=== PATIENT | male | born 1960 | race Caucasian/White ===

== ENCOUNTER 2017-12-26 18:26 | Emergency (ER) | payer SELFPAY ==
[2017-12-26] MEDS ORDERED: Ketorolac 15 MG/ML SDV IVPUSH ONE (18:55)
--- NOTE | 2017-12-26 18:57 | EDM.PDOC ---
ED HPI GENERAL MEDICAL PROBLEM - General Chief Complaint: ENT Problem Stated Complaint: DENTAL COMPLAINT Time Seen by Provider: 12/26/17 18:36 Source of Information: Reports: Patient History Limitations: Reports: No Limitations - History of Present Illness INITIAL COMMENTS - FREE TEXT/NARRATIVE: 57-year-old male presents for evaluation and treatment of pain and swelling to the left side. States that he woke up with his face like this. He reports pain to the left upper teeth. Resort towards associated symptoms of chills but no fevers, nausea or vomiting. He reports some pain with extraocular movement particularly when looking left lateral. States he is not taking Tylenol or Motrin. He did take as an antibiotic that his neighbor had unsure what this was , about half hour prior to arrival in the ER. States he has not seen a dentist in quite some time. Has a history of COPD but does not see a primary care provider. Onset: Today Location: Reports: Face Left Upper Tooth/Teeth Pain Score (Numeric/FACES): 7 - Related Data Allergies Allergy/AdvReac Type Severity Reaction Status Date / Time No Known Allergies Allergy Verified 12/26/17 18:39 Home Meds: Home Meds Clindamycin HCl 450 mg PO Q6HR #53 capsule 12/26/17 [Rx] Past Medical History Respiratory History: Reports: COPD Musculoskeletal History: Reports: Back Pain, Chronic, Neck Pain, Chronic Social & Family History - Tobacco Use Smoking Status *Q: Current Every Day Smoker Years of Tobacco use: 40 Packs/Tins Daily: 1 - Caffeine Use Caffeine Use: Reports: Coffee - Recreational Drug Use Recreational Drug Use: No ED ROS ENT - Review of Systems Review Of Systems: See Below Constitutional: Reports: Chills. Denies: Fever HEENT: Reports: Dental Pain, Sinus Problem, Other (left sided facial pain and swelling; pain with EOM) Respiratory: Denies: Shortness of Breath Cardiovascular: Denies: Chest Pain GI/Abdominal: Denies: Nausea, Vomiting ED EXAM, ENT - Physical Exam Exam: See Below Exam Limited By: No Limitations General Appearance: Alert, WD/WN, No Apparent Distress, Anxious Eye Exam: Left Eye: Periorbital Changes (swelling to both upper and lower lids) , Bilateral Eye: EOMI (reports pain to the left eye with left lateral gaze) Ears: Normal External Exam, Normal Canal, Normal TMs Nose: Normal Inspection Mouth/Throat: Dental Abcess (#13/14), Dental Tenderness, Gum Swelling ( ), Other (adela poor dentition with muliple carries and multiple missing teeth; severe gum regression and ascess at #13 with regression to the maxilla; #14 absent) Head: Facial Swelling (left maxilla to the zygomatic proces, left orbit and left nasal bone), Sinus Tenderness (left maxillary) Respiratory/Chest: No Respiratory Distress, Lungs Clear, Normal Breath Sounds Cardiovascular: Normal Peripheral Pulses, No Murmur, Tachycardia Neurological: Alert, Oriented, Normal Cognition Psychiatric: Normal Affect, Normal Mood Skin: Warm, Dry, Normal Color Course - Vital Signs Last Recorded V/S: Last Vital Signs Temp 99.2 F 12/26/17 18:36 Pulse 101 H 12/26/17 18:36 Resp 24 H 12/26/17 18:36 BP 129/91 H 12/26/17 18:36 Pulse Ox 97 12/26/17 18:36 - Orders/Labs/Meds Labs: Laboratory Tests 12/26/17 12/26/17 12/26/17 Range/Units 19:05 19:05 19:15 WBC 13.87 H (4.23-9.07) K/mm3 RBC 4.89 (4.63-6.08) M/mm3 Hgb 15.5 (13.7-17.5) gm/L Hct 46.0 (40.1-51.0) % MCV 94.1 H (79.0-92.2) fl MCH 31.7 (25.7-32.2) pg MCHC 33.7 (32.2-35.5) g/dl RDW Std Deviation 43.2 (35.1-43.9) fL Plt Count 194 (163-337) K/mm3 MPV 9.0 L (9.4-12.3) fl Neutrophils % (Manual) 78 H (40-60) % Band Neutrophils % 0 (0-10) % Lymphocytes % (Manual) 18 L (20-40) % Atypical Lymphs % 0 % Monocytes % (Manual) 4 (2-10) % Eosinophils % (Manual) 0 L (0.8-7.0) % Basophils % (Manual) 0 L (0.2-1.2) Platelet Estimate Adequate Plt Morphology Comment Normal Anisocytosis 1+ sligh RBC Morph Comment Not Reportable Sodium 137 (136-145) mEq/L Potassium 3.9 (3.5-5.1) mEq/L Chloride 103 (98-107) mEq/L Carbon Dioxide 25 (21-32) mEq/L Anion Gap 12.9 (5-15) BUN 13 (7-18) mg/dL Creatinine 0.8 (0.7-1.3) mg/dL Est Cr Clr Drug Dosing 100.40 mL/min Estimated GFR (MDRD) > 60 (>60) mL/min BUN/Creatinine Ratio 16.3 (14-18) Glucose 113 H (74-106) mg/dL Lactic Acid 0.7 (0.4-2.0) mmol/L Calcium 8.8 (8.5-10.1) mg/dL Total Bilirubin 0.5 (0.2-1.0) mg/dL AST 16 (15-37) U/L ALT 19 (16-63) U/L Alkaline Phosphatase 62 (46-116) U/L C-Reactive Protein 4.5 H* (<1.0) mg/dL Total Protein 7.1 (6.4-8.2) g/dl Albumin 3.3 L (3.4-5.0) g/dl Globulin 3.8 gm/dL Albumin/Globulin Ratio 0.9 L (1-2) Meds: Medications Discontinued Medications Generic Name Dose Route Start Last Admin Trade Name Freq PRN Reason Stop Dose Admin Clindamycin HCl 450 mg 12/26/17 21:54 12/26/17 22:26 Cleocin PO 12/26/17 21:55 450 mg NOW STA Administration Clindamycin HCl 450 mg 12/26/17 21:55 12/26/17 22:26 Cleocin PO 12/26/17 21:56 450 mg ONETIME ONE Administration Clindamycin Phosphate 900 mg/ 106 mls @ 100 mls/hr 12/26/17 20:24 12/26/17 20 :31 Sodium Chloride IV 12/26/17 21:27 100 mls/hr ONETIME ONE Administration Iopamidol 80 ml 12/26/17 19:22 12/26/17 19:51 Isovue-300 (61%) IVPUSH 12/26/17 19:23 80 ml ONETIME ONE Administration Ketorolac Tromethamine 15 mg 12/26/17 18:55 12/26/17 19:11 Toradol IVPUSH 12/26/17 18:56 15 mg ONETIME ONE Administration Sodium Chloride 10 ml 12/26/17 18:54 12/26/17 20:32 Saline Flush FLUSH 10 ml ASDIRECTED PRN Administration Keep Vein Open Sodium Chloride 10 ml 12/26/17 19:22 12/26/17 19:52 Saline Flush FLUSH 12/26/17 19:23 10 ml ONETIME ONE Administration - Radiology Interpretation Free Text/Narrative:: CT of the maxillofacial with IV contrast impression per vrad: left maxillary sinusitis. Inflammatory occlusion of the left osteomeatal complex. Fluid collection with gas bubbles demonstrated at the inferior margin of the premaxillary soft tissues adjacent to the maxillary sinus possibly representing an abscess of dental origin. Inflammation spread to the left periorbital and parnasal region. Bilateral ethmoid sinusitis and left frontal sinusitis. Inflammation in he right frontal ethmoid recess. CT Results Date: 12/26/17 - Re-Assessments/Exams Free Text/Narrative Re-Assessment/Exam: 12/26/17 21:22 I reviewed the labs and imaging with the patient. Given the severity of his dental abscess and sinusitis I do recommend that he stay in the hospital. I informed him that he is at high risk for developing a brain abscess. He does not want to stay. I asked him several times if he be willing to stay and reiterated that this was my recommendation but he would like to go home. Plan will be to discharge him home with some clindamycin. I do not feel he is reliable to come into the hospital or ER for IV antibiotics. Patient's neighbor brought him to the ER and he is very concerned about transportation. Discharge instructions as documented. Departure - Departure Time of Disposition: 22:07 Disposition: Home, Self-Care 01 Condition: Serious Clinical Impression: Sinusitis, Dental abscess - Discharge Information Prescriptions: Clindamycin HCl 450 mg PO Q6HR #53 capsule Instructions: Dental Abscess, [id number], Sinusitis, Adult, [id number] Referrals: PCP,None [Primary Care Provider] - Tiffanie Trujillo MD [Physician] - Forms: ED Department Discharge Additional Instructions: Follow-up with family medicine this week. Recommend Dr. Trujillo at the [facility], [place]. Call [phone] to schedule with her. See a dentist as soon as you were able to. A list has been provided. Take [id number] Tylenol or Motrin as needed for pain relief. Recommend using ice to the face for additional swelling relief. Clindamycin 450 mg every 6 hours for 2 weeks. Clindamycin is hard on the stomach. Ask the pharmacist for a probiotic to take as well with the clindamycin. [facility] pharmacy is open from noon to 4 tomorrow, fill your prescription. You may take the 2 tabs you were given in the ER 6 hours apart until your prescription filled. please return to the ER immediately if your symptoms change or worsen.
[2017-12-26] MEDS: Sodium Chloride 0.9% 10 ML Syringe FLUSH PRN ×2 (19:13→20:32)
[2017-12-26] MEDS ORDERED: Iopamidol 612 MG/ML 100 ML Bottle IVPUSH ONE (19:22)
[2017-12-26] MEDS ORDERED: Sodium Chloride 0.9% 10 ML Syringe FLUSH ONE (19:22)
[2017-12-26] MEDS ORDERED: Clindamycin Phosphate 900 MG in Sodium Chloride 0.9% 100 ML IV ONE (20:24)
[2017-12-26] MEDS ORDERED: Clindamycin HCl 150 MG Cap PO STA (21:54)
[2017-12-26] MEDS ORDERED: Clindamycin HCl 150 MG Cap PO ONE (21:55)
--- NOTE | 2017-12-28 07:00 | CT ---
CT maxillofacial Technique: Multiple axial sections were obtained from below the mandible superiorly through the paranasal sinuses. Intravenous contrast was utilized. Comparison: No previous study. Findings: Moderate to severe mucosal thickening is seen within the left maxillary sinus. Mild mucosal thickening and possible small retention cyst is noted within the right maxillary sinus. Fairly prominent mucosal thickening is seen of the left ethmoid sinus with lesser mucosal thickening seen within the right maxillary sinus. Mucosal thickening is seen within both frontal sinuses which is worse on the left side. Occlusion due to mucosal thickening is seen of the left maxillary ostia as well as increased soft tissue density within the left nasal cavity. Mild mucosal thickening also seen within the sphenoid sinuses. No air-fluid levels are seen within the paranasal sinuses. Diffuse soft tissue swelling is seen through the upper left neck extending into the left cheek and extending into the left periorbital region. Soft tissue air seen on the left side adjacent to the anterior left maxillary sinus. Lucency is identified around the most posterior molar on the left side within the maxillary region suspicious for dental abscess. Paravertebral soft tissues show no swelling. Parapharyngeal soft tissues appear within normal limits. Scattered lymph nodes are seen within the neck which are felt to be within normal limits. Bone window settings were reviewed which show mild degenerative change within the cervical spine at C3-C4 and C4-C5. Impression: 1. Diffuse mucosal thickening throughout all the paranasal sinuses which has the appearance of chronic sinusitis. 2. Diffuse soft tissue swelling within the upper left neck, left cheek and left periorbital region. Small amount of soft tissue air (possibly representing small soft tissue abscess) anterior to the left maxillary sinus is seen. Lucency identified around the most posterior left-sided maxillary molar suspicious for abscess. This dental abscess may be the etiology for the left sided soft tissue swelling. 3. Incidental degenerative change within the cervical spine. Diagnostic code #3 I agree with preliminary report from [facility], finalized at 12/26/17, 9:50 PM Central Time
== END 2017-12-26 22:15 | disposition home or self-care (01) ==
LOC: JD.ED 18:26
DX: K04.7 Periapical abscess without sinus (principal); J32.9 Chronic sinusitis, unspecified; F17.210 Nicotine dependence, cigarettes, uncomplicated
CPT/HCPCS: 36415; 70487; 80053; 83605; 85007; 85027; 86140; 87040; 96365; 96375; 99284; A9270; J1885; J7030; J7050; Q9967

== ENCOUNTER 2021-04-07 15:05 | Emergency (ER) | payer MEDICAID ==
[2021-04-07] MEDS ORDERED: Sodium Chloride 0.9% 10 ML Syringe FLUSH PRN (16:01)
--- NOTE | 2021-04-07 16:21 | EDM.PDOC ---
ED HPI GENERAL MEDICAL PROBLEM - General Chief Complaint: Respiratory Problem Stated Complaint: SOB CONGESTION Time Seen by Provider: 04/07/21 15:55 Source of Information: Reports: Patient, RN Notes Reviewed History Limitations: Reports: No Limitations - History of Present Illness INITIAL COMMENTS - FREE TEXT/NARRATIVE: Patient is a 60-year-old male who presents to the ER for the evaluation of his cough and shortness of breath. States that he has not been vaccinated for COVID-19. He was around a child that was sick, this last Thursday, April 01, 2021. He states that after he was with this child he began to have some eye redness, and noted that his eye was crusting shut throughout the night and into the morning. He has since developed a cough, with some green-colored sputum. Feels increasingly short of breath. He states this is happened before, when he used to smoke meth, he was gets a little bit of a "infection". States that he last smoked meth about 1 week ago. States he is going to try to kick the habit. He feels warm to the touch, but states he has not had any fevers at home, he is denying any sort of nausea/vomiting/diarrhea. Patient states he has a history of COPD. - Related Data Allergies Allergy/AdvReac Type Severity Reaction Status Date / Time No Known Allergies Allergy Verified 04/07/21 15:58 Home Meds: Home Meds Azithromycin 250 mg PO ASDIRECTED #4 tablet 04/07/21 [Rx] Budesonide/Formoterol Fumarate [Symbicort 160-4.5 Mcg Inhaler] 1 dose IN BID 04/07/21 [History] Oseltamivir [Tamiflu] 75 mg PO BID #9 cap 04/07/21 [Rx] predniSONE 20 mg PO ASDIRECTED #15 tab 04/07/21 [Rx] Past Medical History Respiratory History: Reports: COPD Other Gastrointestinal History: ulcers Musculoskeletal History: Reports: Back Pain, Chronic, Neck Pain, Chronic Social & Family History - Tobacco Use Tobacco Use Status *Q: Current Every Day Tobacco User Years of Tobacco use: 44 Packs/Tins Daily: 1 - Caffeine Use Caffeine Use: Reports: Coffee - Recreational Drug Use Recreational Drug Use: Yes Recreational Drug Type: Reports: Marijuana/Hashish, Methamphetamine Recreational Drug Use Frequency: Weekly ED ROS GENERAL - Review of Systems Review Of Systems: Comprehensive ROS is negative, except as noted in HPI. ED EXAM, GENERAL - Physical Exam Exam: See Below Exam Limited By: No Limitations General Appearance: Alert, WD/WN, No Apparent Distress, Anxious (slight generalized) Eye Exam: Bilateral Eye: Conjunctival Injection, EOMI, PERRL Respiratory/Chest: No Respiratory Distress, Lungs Clear, Normal Breath Sounds, No Accessory Muscle Use, Chest Non-Tender Cardiovascular: Normal Peripheral Pulses, Regular Rate, Rhythm, No Edema Peripheral Pulses: 2+: Radial (L), Radial (R) Extremities: Normal Inspection, Normal Capillary Refill Neurological: Alert, Oriented, Normal Cognition, No Motor/Sensory Deficits Psychiatric: Normal Affect, Normal Mood Skin Exam: Warm, Dry, Intact, Normal Color, No Rash #1 Interpretation EKG Date: 04/07/21 Time: 17:05 Rhythm: NSR (Sinus tach) Rate (Beats/Min): 101 [place]: Normal P-Wave: Present QRS: Normal ST-T: Normal QT: Normal EKG Interpretation Comments: No obvious ischemia or acute ST changes noted, reviewed by myself and Dr. Weiss. Course - Vital Signs Last Recorded V/S: Last Vital Signs Temp 97.0 F 04/07/21 15:56 Pulse 85 04/07/21 15:56 Resp 20 04/07/21 15:56 BP 134/109 H 04/07/21 15:56 Pulse Ox 97 04/07/21 15:56 - Orders/Labs/Meds Orders: Active Orders 24 hr Category Date Time Status Peripheral IV Care [RC] . DIRECTED Care 04/07/21 16:02 Active RT Post Treatment Assessment [RC] Click to Edit Care 04/07/21 17:16 Active RT Pre-Treatment Assessment [RC] Click to Edit Care 04/07/21 17:16 Active Chest 1V Frontal [CR] Stat Exams 04/07/21 16:01 Taken Sodium Chloride 0.9% [Saline Flush] Med 04/07/21 16:01 Active 10 ml FLUSH ASDIRECTED PRN Peripheral IV Insertion Adult [OM.PC] Routine Oth 04/07/21 16:01 Ordered Medication Orders Sodium Chloride (Sodium Chloride 0.9% 10 Ml Syringe) 10 ml FLUSH ASDIRECTED PRN PRN Reason: Keep Vein Open Labs: Laboratory Tests 04/07/21 04/07/21 04/07/21 Range/Units 16:05 16:05 16:45 WBC (4.23-9.07) K/mm3 RBC (4.63-6.08) M/mm3 Hgb (13.7-17.5) gm/dl Hct (40.1-51.0) % MCV (79.0-92.2) fl MCH (25.7-32.2) pg MCHC (32.2-35.5) g/dl RDW Std Deviation (35.1-43.9) fL Plt Count (163-337) K/mm3 MPV (9.4-12.3) fl Neut % (Auto) (34.0-67.9) % Lymph % (Auto) (21.8-53.1) % [place] % (Auto) (5.3-12.2) % Eos % (Auto) (0.8-7.0) Baso % (Auto) (0.1-1.2) % Neut # (Auto) (1.78-5.38) K/mm3 Lymph # (Auto) (1.32-3.57) K/mm3 [place] # (Auto) (0.30-0.82) K/mm3 Eos # (Auto) (0.04-0.54) K/mm3 Baso # (Auto) (0.01-0.08) K/mm3 Manual Slide Review PT (9.7-12.0) SECONDS INR APTT (21.7-31.4) SECONDS D-Dimer, Quantitative (0.19-0.50) mg/L Sodium (136-145) mEq/L Potassium (3.5-5.1) mEq/L Chloride (98-107) mEq/L Carbon Dioxide (21-32) mEq/L Anion Gap (5-15) BUN (7-18) mg/dL Creatinine (0.7-1.3) mg/dL Est Cr Clr Drug Dosing mL/min Estimated GFR (MDRD) (>60) mL/min BUN/Creatinine Ratio (14-18) Glucose (70-99) mg/dL Calcium (8.5-10.1) mg/dL Magnesium (1.8-2.4) mg/dL Total Bilirubin (0.2-1.0) mg/dL AST (15-37) U/L ALT (16-63) U/L Alkaline Phosphatase (46-116) U/L Troponin I (0.00-0.056) ng/mL C-Reactive Protein 1.9 H* (<1.0) mg/dL NT-Pro-B Natriuret Pep (0-125) pg/mL Total Protein (6.4-8.2) g/dl Albumin (3.4-5.0) g/dl Globulin gm/dL Albumin/Globulin Ratio (1-2) Influenza Type A RNA Positive H (NEGATIVE) Influenza Type B RNA Negative (NEGATIVE) SARS-CoV-2 RNA ([place]) Negative Cancelled (NEGATIVE) 04/07/21 04/07/21 04/07/21 Range/Units 16:45 16:45 16:45 WBC 9.92 H (4.23-9.07) K/mm3 RBC 4.78 (4.63-6.08) M/mm3 Hgb 14.8 (13.7-17.5) gm/dl Hct 45.2 (40.1-51.0) % MCV 94.6 H (79.0-92.2) fl MCH 31.0 (25.7-32.2) pg MCHC 32.7 (32.2-35.5) g/dl RDW Std Deviation 43.9 (35.1-43.9) fL Plt Count 296 D (163-337) K/mm3 MPV 8.6 L (9.4-12.3) fl Neut % (Auto) 60.0 (34.0-67.9) % Lymph % (Auto) 24.8 (21.8-53.1) % [place] % (Auto) 9.4 (5.3-12.2) % Eos % (Auto) 4.7 (0.8-7.0) Baso % (Auto) 0.8 (0.1-1.2) % Neut # (Auto) 5.95 H (1.78-5.38) K/mm3 Lymph # (Auto) 2.46 (1.32-3.57) K/mm3 [place] # (Auto) 0.93 H (0.30-0.82) K/mm3 Eos # (Auto) 0.47 (0.04-0.54) K/mm3 Baso # (Auto) 0.08 (0.01-0.08) K/mm3 Manual Slide Review Normal smear PT 10.1 (9.7-12.0) SECONDS INR < 0.93 APTT 25.2 (21.7-31.4) SECONDS D-Dimer, Quantitative 0.33 (0.19-0.50) mg/L Sodium 136 (136-145) mEq/L Potassium 4.2 (3.5-5.1) mEq/L Chloride 102 (98-107) mEq/L Carbon Dioxide 29 (21-32) mEq/L Anion Gap 9.2 (5-15) BUN 16 (7-18) mg/dL Creatinine 0.8 (0.7-1.3) mg/dL Est Cr Clr Drug Dosing 91.63 mL/min Estimated GFR (MDRD) > 60 (>60) mL/min BUN/Creatinine Ratio 20.0 H (14-18) Glucose 107 H (70-99) mg/dL Calcium 9.1 (8.5-10.1) mg/dL Magnesium 2.1 (1.8-2.4) mg/dL Total Bilirubin 0.2 (0.2-1.0) mg/dL AST 10 L (15-37) U/L ALT 20 (16-63) U/L Alkaline Phosphatase 98 (46-116) U/L Troponin I < 0.017 (0.00-0.056) ng/mL C-Reactive Protein (<1.0) mg/dL NT-Pro-B Natriuret Pep (0-125) pg/mL Total Protein 7.3 (6.4-8.2) g/dl Albumin 3.2 L (3.4-5.0) g/dl Globulin 4.1 gm/dL Albumin/Globulin Ratio 0.8 L (1-2) Influenza Type A RNA (NEGATIVE) Influenza Type B RNA (NEGATIVE) SARS-CoV-2 RNA ([place]) (NEGATIVE) 04/07/21 Range/Units 16:45 WBC (4.23-9.07) K/mm3 RBC (4.63-6.08) M/mm3 Hgb (13.7-17.5) gm/dl Hct (40.1-51.0) % MCV (79.0-92.2) fl MCH (25.7-32.2) pg MCHC (32.2-35.5) g/dl RDW Std Deviation (35.1-43.9) fL Plt Count (163-337) K/mm3 MPV (9.4-12.3) fl Neut % (Auto) (34.0-67.9) % Lymph % (Auto) (21.8-53.1) % [place] % (Auto) (5.3-12.2) % Eos % (Auto) (0.8-7.0) Baso % (Auto) (0.1-1.2) % Neut # (Auto) (1.78-5.38) K/mm3 Lymph # (Auto) (1.32-3.57) K/mm3 [place] # (Auto) (0.30-0.82) K/mm3 Eos # (Auto) (0.04-0.54) K/mm3 Baso # (Auto) (0.01-0.08) K/mm3 Manual Slide Review PT (9.7-12.0) SECONDS INR APTT (21.7-31.4) SECONDS D-Dimer, Quantitative (0.19-0.50) mg/L Sodium (136-145) mEq/L Potassium (3.5-5.1) mEq/L Chloride (98-107) mEq/L Carbon Dioxide (21-32) mEq/L Anion Gap (5-15) BUN (7-18) mg/dL Creatinine (0.7-1.3) mg/dL Est Cr Clr Drug Dosing mL/min Estimated GFR (MDRD) (>60) mL/min BUN/Creatinine Ratio (14-18) Glucose (70-99) mg/dL Calcium (8.5-10.1) mg/dL Magnesium (1.8-2.4) mg/dL Total Bilirubin (0.2-1.0) mg/dL AST (15-37) U/L ALT (16-63) U/L Alkaline Phosphatase (46-116) U/L Troponin I (0.00-0.056) ng/mL C-Reactive Protein (<1.0) mg/dL NT-Pro-B Natriuret Pep 128 H (0-125) pg/mL Total Protein (6.4-8.2) g/dl Albumin (3.4-5.0) g/dl Globulin gm/dL Albumin/Globulin Ratio (1-2) Influenza Type A RNA (NEGATIVE) Influenza Type B RNA (NEGATIVE) SARS-CoV-2 RNA ([place]) (NEGATIVE) Meds: Medications Generic Name Dose Route Start Last Admin Trade Name Freq PRN Reason Stop Dose Admin Sodium Chloride 10 ml 04/07/21 16:01 Sodium Chloride 0.9% 10 Ml Syringe FLUSH ASDIRECTED PRN Keep Vein Open Discontinued Medications Generic Name Dose Route Start Last Admin Trade Name Freq PRN Reason Stop Dose Admin Albuterol 0 gm 04/07/21 17:16 Albuterol 6.7 Gm Inhaler INH 04/07/21 17:17 ONETIME ONE Azithromycin 500 mg 04/07/21 17:16 04/07/21 17:39 Azithromycin 250 Mg Tab PO 04/07/21 17:17 500 mg ONETIME ONE Administration Erythromycin 1 gm 04/07/21 17:43 Erythromycin Base 0.5% Ophth Oint 1 Gm Tube EYEBOTH 04/07/21 17:44 ONETIME ONE Oseltamivir Phosphate 75 mg 04/07/21 17:21 04/07/21 17:39 Oseltamivir 75 Mg Cap PO 04/07/21 17:22 75 mg ONETIME ONE Administration Prednisone 40 mg 04/07/21 17:17 04/07/21 17:39 Prednisone 20 Mg Tab PO 04/07/21 17:18 40 mg ONETIME ONE Administration - Re-Assessments/Exams Free Text/Narrative Re-Assessment/Exam: 04/07/21 16:20 Patient presents to the ER for evaluation of his cough and shortness of breath. We will get a chest x-ray, EKG, and some basic labs along with a Covid swab for initial management. 04/07/21 17:33 Patient's CBC did demonstrate a slightly elevated white count at 9000. Metabolic panel is essentially unremarkable. The patient's influenza A screen did come back positive, influenza B is negative, and COVID-19 swab was negative. At this time we will treat him as a COPD exacerbation with overlying influenza he will get antibiotics, steroids and Tamiflu along with an inhaler dispensed from our facility for ongoing management. Departure - Departure Time of Disposition: 17:34 Disposition: Home, Self-Care 01 Condition: Fair Clinical Impression: Influenza A, COPD exacerbation - Discharge Information *PRESCRIPTION DRUG MONITORING PROGRAM REVIEWED*: No *COPY OF PRESCRIPTION DRUG MONITORING REPORT IN PATIENT STACEY: No Prescriptions: Azithromycin 250 mg PO ASDIRECTED #4 tablet predniSONE 20 mg PO ASDIRECTED #15 tab Oseltamivir [Tamiflu] 75 mg PO BID #9 cap Instructions: Chronic Obstructive Pulmonary Disease Exacerbation, [id number], Influenza, Adult, [id number] Referrals: PCP,None [Primary Care Provider] - Forms: ED Department Discharge Additional Instructions: You were evaluated in the ER today for your ongoing respiratory issues. A COVID swab and influenza swab were taken at today's visit. The COVID-19 swab did come back negative however you did test positive for influenza A at this time. You have been given a few different medications, 1 is an antibiotic, azithromycin, your first dose was given in the ER, and you will need to continue to take 1 pill until gone. Your second medication is for oral steroids, you only take 1 tablet 2 times a day for the next 5 days and then 1 tablet once a day for the last 5 days. The third medication is an antiviral for the influenza virus. You will need to take 1 tablet 2 times daily for 5 days or until gone. All of these medications have been electronically prescribed to the [facility] pharmacy located on [address]. You were also given an albuterol inhaler from this ER visit, you may take 2 puffs every 4 hours as needed for ongoing shortness of breath. You need to continue your Symbicort inhaler that you already have, you should be taking this 2 times a day as this is a maintenance medication and needs to be taken daily. You may continue to take Tylenol ibuprofen every 6 hours as needed for ongoing pain or discomfort. Do not exceed 4000 mg Tylenol or 3200 mg ibuprofen in a 24- hour time span. If you do not have a primary care provider already, I recommend that you follow- up with a provider in our clinic, any family practice provider would be able to provide you with the services. Our clinic telephone number [phone], please call in the morning to obtain an appointment with the provider, for follow-up of your symptoms that prompted your ER visit today. Do not hesitate to return to the ER at any time if symptoms change or worsen. Sepsis Event Note (ED) - Focused Exam Vital Signs: Vital Signs Temp Pulse Resp BP Pulse Ox 04/07/21 15:56 97.0 F 85 20 134/109 H 97 - My Orders Last 24 Hours: My Active Orders 04/07/21 16:01 Chest 1V Frontal [CR] Stat Sodium Chloride 0.9% [Saline Flush] 10 ml FLUSH ASDIRECTED PRN Peripheral IV Insertion Adult [OM.PC] Routine 04/07/21 16:02 Peripheral IV Care [RC] . DIRECTED 04/07/21 17:16 RT Post Treatment Assessment [RC] Click to Edit RT Pre-Treatment Assessment [RC] Click to Edit - Assessment/Plan Last 24 Hours: My Active Orders 04/07/21 16:01 Chest 1V Frontal [CR] Stat Sodium Chloride 0.9% [Saline Flush] 10 ml FLUSH ASDIRECTED PRN Peripheral IV Insertion Adult [OM.PC] Routine 04/07/21 16:02 Peripheral IV Care [RC] . DIRECTED 04/07/21 17:16 RT Post Treatment Assessment [RC] Click to Edit RT Pre-Treatment Assessment [RC] Click to Edit
[2021-04-07] MEDS ORDERED: Azithromycin 250 MG Tab PO ONE (17:16)
[2021-04-07] MEDS ORDERED: Albuterol 6.7 GM Inhaler INH ONE (17:16)
[2021-04-07] MEDS ORDERED: predniSONE 20 MG Tab PO ONE (17:17)
[2021-04-07] MEDS ORDERED: Oseltamivir 75 MG Cap PO ONE (17:21)
[2021-04-07] MEDS ORDERED: Erythromycin Base 0.5% Ophth Oint 1 GM Tube EYEBOTH ONE (17:43)
--- NOTE | 2021-04-08 07:19 | CR ---
Chest: Frontal view of the chest was obtained. Comparison: No prior chest imaging is available. Heart size is felt to be slightly enlarged. Lung markings are mildly increased within the perihilar region which could be chronic or represent slight bronchitis. Lungs are also hyperinflated likely representing emphysematous change. Bony structures are osteopenic. Mild deformity within the right clavicle is seen possibly due to old healed fracture. Osteopenia is also noted. Impression: 1. Slight increased perihilar markings either representing chronic change or a mild bronchitis. 2. Probable emphysematous change is present. 3. Other findings which are believed to be chronic as noted above. Diagnostic code #3
== END 2021-04-07 18:43 | disposition home or self-care (01) ==
LOC: JD.ED 15:05
DX: J44.1 Chronic obstructive pulmonary disease with (acute) exacerbation (principal); J10.1 Influenza due to other identified influenza virus with other respiratory manifestations; Z72.0 Tobacco use; Z20.822 Contact with and (suspected) exposure to COVID-19
CPT/HCPCS: 36415; 71045; 80053; 83735; 83880; 84484; 85025; 85379; 85610; 85730; 86140; 87635; 87804; 93005; 99285; A9270; J7512; 0240U; 93010; 99284; U0002

== ENCOUNTER 2021-07-17 11:23 | Emergency (ER) | payer MEDICAID ==
[2021-07-17] MEDS ORDERED: Sodium Chloride 0.9% 10 ML Syringe FLUSH PRN (11:48)
--- NOTE | 2021-07-17 12:32 | CR ---
Chest: Frontal view of the chest was obtained. Comparison: Prior chest x-ray of 05/06/21. Lungs are hyperinflated compatible with emphysematous change. Lungs are clear with no acute parenchymal change. Heart size and mediastinum are stable. Bony structures show nothing acute. Impression: 1. Emphysematous change. 2. No acute intrathoracic process is seen. Diagnostic code #2
[2021-07-17 12:37] LABS: CORONAVIRUS COVID-19 NAA NEGATIVE (NEGATIVE)
--- NOTE | 2021-07-17 12:58 | EDM.PDOC ---
ED HPI GENERAL MEDICAL PROBLEM - General Chief Complaint: Respiratory Problem Stated Complaint: aob Time Seen by Provider: 07/17/21 11:37 Source of Information: Reports: Patient History Limitations: Reports: No Limitations - History of Present Illness INITIAL COMMENTS - FREE TEXT/NARRATIVE: 41-year-old male presents the emergency department today complaints of worsening shortness of breath. Patient states that this is progressively worsened over the past couple of days. Denies any fever, chills, nausea, vomiting or diarrhea. He has been more short of breath and coughing more over the past couple of days. Productive of huang sputum. Patient does have a history of COPD and does continue to smoke. 1 to 2 pack a day smoker for the past 49 years. Patient does use a Symbicort inhaler twice daily. He states he has been using this as prescribed. He also does have an albuterol inhaler which he has been using more over the past couple of days. Patient also complains that over the past couple of days he has had "cramping" to the left side of his chest. Does have a history of smoking methamphetamine however he states he quit 4 months ago. Primary care provider is Priscilla Hernandez. - Related Data Allergies Allergy/AdvReac Type Severity Reaction Status Date / Time No Known Allergies Allergy Verified 07/17/21 11:36 Home Meds: Home Meds Budesonide/Formoterol Fumarate [Symbicort 160-4.5 Mcg Inhaler] 1 dose IN BID 04/07/21 [History] Azithromycin [Zithromax] 500 mg PO DAILY #6 tablet 07/17/21 [Rx] Azithromycin [Zithromax] 500 mg PO DAILY #6 tablet 07/17/21 [Rx] predniSONE [Prednisone] 40 mg PO DAILY #20 tablet 07/17/21 [Rx] predniSONE [Prednisone] 40 mg PO DAILY #20 tablet 07/17/21 [Rx] Past Medical History Respiratory History: Reports: COPD Other Gastrointestinal History: ulcers Musculoskeletal History: Reports: Back Pain, Chronic, Neck Pain, Chronic - Infectious Disease History Infectious Disease History: Reports: Influenza Social & Family History - Tobacco Use Tobacco Use Status *Q: Current Every Day Tobacco User Years of Tobacco use: 45 Packs/Tins Daily: 1 - Caffeine Use Caffeine Use: Reports: Coffee - Recreational Drug Use Recreational Drug Use: Yes Drug Use in Last 12 Months: Yes Recreational Drug Type: Reports: Methamphetamine ED ROS GENERAL - Review of Systems Review Of Systems: Comprehensive ROS is negative, except as noted in HPI. ED EXAM, GENERAL - Physical Exam Exam: See Below Exam Limited By: No Limitations General Appearance: Alert, WD/WN, No Apparent Distress Ears: Normal External Exam, Hearing Grossly Normal Nose: Normal Inspection Throat/Mouth: Normal Inspection, Normal Lips, Normal Voice, No Airway Compromise Head: Atraumatic, Normocephalic Neck: Normal Inspection, Supple Respiratory/Chest: No Respiratory Distress, Lungs Clear, No Accessory Muscle Use, Chest Non-Tender, Decreased Breath Sounds Cardiovascular: Normal Peripheral Pulses, Regular Rate, Rhythm, No Edema, No Murmur Peripheral Pulses: 2+: Radial (L), Radial (R) GI/Abdominal: Normal Bowel Sounds, Soft, Non-Tender, No Distention (Male) Exam: Deferred Rectal (Males) Exam: Deferred Back Exam: Normal Inspection Extremities: Normal Inspection Neurological: Alert, Oriented, Normal Cognition Psychiatric: Normal Affect, Normal Mood Skin Exam: Warm, Dry, Intact, Normal Color, No Rash Lymphatic: No Adenopathy #1 Interpretation EKG Date: 07/17/21 Time: 11:59 Rhythm: NSR Rate (Beats/Min): 90 [place]: Normal P-Wave: Present QRS: Normal ST-T: Normal QT: Normal EKG Interpretation Comments: Per Dr. Kearney interpretation: Sinus rhythm at 90 bpm; inferior infarct, old Course - Vital Signs Text/Narrative:: As stated above, patient presents with worsening shortness of breath and cough. Does have a significant smoking history. O2 saturations at the time of triage were 85% on room air. O2 saturations came up to 92% on 2 L per nasal cannula. Patient is tachycardic initially in triage and is otherwise hemodynamically stable. He is afebrile. Lung sounds are very diminished throughout. I do not appreciate any crackles or wheezes. I have ordered a chest x-ray, lab studies to include CBC, CMP, magnesium, D-dimer, C-reactive protein, troponin as well as testing for Covid, influenza a and B. Last Recorded V/S: Last Vital Signs Temp 97 F 07/17/21 11:34 Pulse 113 H 07/17/21 11:34 Resp 20 07/17/21 11:34 BP 134/88 07/17/21 11:34 Pulse Ox 85 L 07/17/21 11:34 - Orders/Labs/Meds Orders: Active Orders 24 hr Category Date Time Status COVID-19/FLU A+B/RSV [MOLEC] Stat Lab 07/17/21 11:52 Received PRO B-TYPE NATRIUR PEPT,BNPPRO [CHEM] Stat Lab 07/17/21 11:41 Received Sodium Chloride 0.9% [Saline Flush] Med 07/17/21 11:48 Active 10 ml FLUSH ASDIRECTED PRN Saline Lock Insert [OM.PC] Stat Oth 07/17/21 11:48 Ordered Medication Orders Sodium Chloride (Sodium Chloride 0.9% 10 Ml Syringe) 10 ml FLUSH ASDIRECTED PRN PRN Reason: Keep Vein Open Last Admin: 07/17/21 12:06 Dose: 10 ml Documented by: MARSHA Labs: Laboratory Tests 07/17/21 07/17/21 07/17/21 Range/Units 11:25 11:41 11:41 WBC 9.83 H (4.23-9.07) K/mm3 RBC 5.52 (4.63-6.08) M/mm3 Hgb 17.5 (13.7-17.5) gm/dl Hct 53.1 H (40.1-51.0) % MCV 96.2 H (79.0-92.2) fl MCH 31.7 (25.7-32.2) pg MCHC 33.0 (32.2-35.5) g/dl RDW Std Deviation 46.5 H (35.1-43.9) fL Plt Count 252 (163-337) K/mm3 MPV 8.8 L (9.4-12.3) fl Neut % (Auto) 59.8 (34.0-67.9) % Lymph % (Auto) 21.8 (21.8-53.1) % Hopkins % (Auto) 8.1 (5.3-12.2) % Eos % (Auto) 9.7 H (0.8-7.0) Baso % (Auto) 0.5 (0.1-1.2) % Neut # (Auto) 5.88 H (1.78-5.38) K/mm3 Lymph # (Auto) 2.14 (1.32-3.57) K/mm3 Hopkins # (Auto) 0.80 (0.30-0.82) K/mm3 Eos # (Auto) 0.95 H (0.04-0.54) K/mm3 Baso # (Auto) 0.05 (0.01-0.08) K/mm3 D-Dimer, Quantitative < 0.19 L (0.19-0.50) mg/L Puncture Site ABG pH (7.35-7.45) ABG pCO2 (35.0-45.0) mmHg ABG pO2 (80.0-100.0) mmHg ABG HCO3 (22.0-26.0) meq/L ABG O2 Saturation (96.0-97.0) % ABG Base Excess (-2-2.0) Rick Test O2 Delivery Device Sodium (136-145) mEq/L Potassium (3.5-5.1) mEq/L Chloride (98-107) mEq/L Carbon Dioxide (21-32) mEq/L Anion Gap (5-15) BUN (7-18) mg/dL Creatinine (0.7-1.3) mg/dL Est Cr Clr Drug Dosing mL/min Estimated GFR (MDRD) (>60) mL/min BUN/Creatinine Ratio (14-18) Glucose (70-99) mg/dL Calcium (8.5-10.1) mg/dL Magnesium (1.8-2.4) mg/dL Total Bilirubin (0.2-1.0) mg/dL AST (15-37) U/L ALT (16-63) U/L Alkaline Phosphatase (46-116) U/L Troponin I (0.00-0.056) ng/mL C-Reactive Protein (<1.0) mg/dL Total Protein (6.4-8.2) g/dl Albumin (3.4-5.0) g/dl Globulin gm/dL Albumin/Globulin Ratio (1-2) SARS-CoV-2 RNA ([place]) Negative (NEGATIVE) 07/17/21 07/17/21 Range/Units 11:41 12:57 WBC (4.23-9.07) K/mm3 RBC (4.63-6.08) M/mm3 Hgb (13.7-17.5) gm/dl Hct (40.1-51.0) % MCV (79.0-92.2) fl MCH (25.7-32.2) pg MCHC (32.2-35.5) g/dl RDW Std Deviation (35.1-43.9) fL Plt Count (163-337) K/mm3 MPV (9.4-12.3) fl Neut % (Auto) (34.0-67.9) % Lymph % (Auto) (21.8-53.1) % Hopkins % (Auto) (5.3-12.2) % Eos % (Auto) (0.8-7.0) Baso % (Auto) (0.1-1.2) % Neut # (Auto) (1.78-5.38) K/mm3 Lymph # (Auto) (1.32-3.57) K/mm3 Hopkins # (Auto) (0.30-0.82) K/mm3 Eos # (Auto) (0.04-0.54) K/mm3 Baso # (Auto) (0.01-0.08) K/mm3 D-Dimer, Quantitative (0.19-0.50) mg/L Puncture Site Rt radial ABG pH 7.41 (7.35-7.45) ABG pCO2 40.2 (35.0-45.0) mmHg ABG pO2 55.0 L (80.0-100.0) mmHg ABG HCO3 25.1 (22.0-26.0) meq/L ABG O2 Saturation 92.0 L (96.0-97.0) % ABG Base Excess 1.0 (-2-2.0) Rick Test Positive O2 Delivery Device Nasal cannula Sodium 139 (136-145) mEq/L Potassium 4.4 (3.5-5.1) mEq/L Chloride 103 (98-107) mEq/L Carbon Dioxide 25 (21-32) mEq/L Anion Gap 15.4 H (5-15) BUN 12 (7-18) mg/dL Creatinine 0.9 (0.7-1.3) mg/dL Est Cr Clr Drug Dosing 86.75 mL/min Estimated GFR (MDRD) > 60 (>60) mL/min BUN/Creatinine Ratio 13.3 L (14-18) Glucose 108 H (70-99) mg/dL Calcium 9.5 (8.5-10.1) mg/dL Magnesium 2.1 (1.8-2.4) mg/dL Total Bilirubin 0.4 (0.2-1.0) mg/dL AST 11 L (15-37) U/L ALT 21 (16-63) U/L Alkaline Phosphatase 82 (46-116) U/L Troponin I < 0.017 (0.00-0.056) ng/mL C-Reactive Protein <0.2 (<1.0) mg/dL Total Protein 7.5 (6.4-8.2) g/dl Albumin 4.1 (3.4-5.0) g/dl Globulin 3.4 gm/dL Albumin/Globulin Ratio 1.2 (1-2) SARS-CoV-2 RNA ([place]) (NEGATIVE) Meds: Medications Generic Name Dose Route Start Last Admin Trade Name Freq PRN Reason Stop Dose Admin Sodium Chloride 10 ml 07/17/21 11:48 07/17/21 12:06 Sodium Chloride 0.9% 10 Ml Syringe FLUSH 10 ml ASDIRECTED PRN Administration Keep Vein Open Discontinued Medications Generic Name Dose Route Start Last Admin Trade Name Freq PRN Reason Stop Dose Admin Methylprednisolone Sodium Succinate 125 mg 07/17/21 13:44 Methylprednisolone Sodium Succinate 125 Mg/2 Ml Sdv IVPUSH 07/17/21 13:45 ONETIME ONE - Re-Assessments/Exams Free Text/Narrative Re-Assessment/Exam: 07/17/21 13:06 Reevaluation patient's O2 saturations are 98% on 2 L. Oxygen has been decreased to 1 L per nasal cannula. I have ordered ABGs on this patient. 07/17/21 13:08 Hematology reveals a WBC of 9.3, hemoglobin 17.5, hematocrit 53.1, platelet count 252 D-dimer less than 0.19 Chemistry reveals a sodium of 139, potassium 4.4, anion gap 15.4, BUN 12, creatinine 0.9, GFR greater than 60, magnesium 2.1, troponin less than 0.017, C- reactive protein less than 0.2 Patient is Covid negative Influenza swabs are pending. 07/17/21 13:10 Radiologist impression portable view of the chest: Lungs are hyperinflated compatible with emphysematous change. Lungs are clear with no acute parenchymal change. Heart size and mediastinum are stable. Bony structures show nothing acute. Impression: 1. Emphysematous change. 2. No acute intrathoracic process is seen. 07/17/21 13:45 ABGs revealed pH 7.41, PCO2 40.2, PO2 55.0, bicarb 25.1, O2 saturation 92% on 1 L per nasal cannula I have ordered for this patient to receive a dose of Solu-Medrol. 07/17/21 13:46 Influenza a and B are both negative Patient will be discharged home with a diagnosis of COPD exacerbation. He will also be started on home O2. He will need to follow-up with his primary care provider first thing next week due to the hol. Departure - Departure Time of Disposition: 13:49 Disposition: Home, Self-Care 01 Condition: Good Clinical Impression: COPD exacerbation - Discharge Information Prescriptions: predniSONE [Prednisone] 40 mg PO DAILY #20 tablet predniSONE [Prednisone] 40 mg PO DAILY #20 tablet Azithromycin [Zithromax] 500 mg PO DAILY #6 tablet Azithromycin [Zithromax] 500 mg PO DAILY #6 tablet Instructions: Steps to Quit Smoking, [id number], Chronic Obstructive Pulmonary Disease, [id number] Referrals: Priscilla Hernandez, [employer] [Primary Care Provider] - Forms: ED Department Discharge Additional Instructions: You were seen in the emergency department today with complaints of worsening shortness of breath and cough. Labs, chest x-ray, EKG and ABG's were checked. They were all essentially unremarkable. Covid, and influenza swabs were negative. Likely the cause of your worsening shortness of breath is a COPD exacerbation. However your oxygen levels were 85% on room air and required you to have oxygen per nasal cannula. You will be discharged to home with oxygen. I would like you to wear 2 L at all times. I have also sent a prescription to the [facility] for prednisone 40 mg to be taken daily for 10 days as well as Zithromax 500 mg daily for 3 days. You can start taking the Zithromax today however begin taking the prednisone tomorrow as you were given IV steroids while in the emergency department. You will need to follow-up with Priscilla Hernandez at the clinic first thing next week. Please call to schedule that appointment today. Should your condition worsen or change, do not hesitate returning to the emergency department. Sepsis Event Note (ED) - Evaluation Sepsis Screening Result: No Definite Risk - Focused Exam Vital Signs: Vital Signs Temp Pulse Resp BP Pulse Ox 07/17/21 11:34 97 F 113 H 20 134/88 85 L - My Orders Last 24 Hours: My Active Orders 07/17/21 11:41 PRO B-TYPE NATRIUR PEPT,BNPPRO [CHEM] Stat 07/17/21 11:48 Sodium Chloride 0.9% [Saline Flush] 10 ml FLUSH ASDIRECTED PRN Saline Lock Insert [OM.PC] Stat 07/17/21 11:52 COVID-19/FLU A+B/RSV [MOLEC] Stat - Assessment/Plan Last 24 Hours: My Active Orders 07/17/21 11:41 PRO B-TYPE NATRIUR PEPT,BNPPRO [CHEM] Stat 07/17/21 11:48 Sodium Chloride 0.9% [Saline Flush] 10 ml FLUSH ASDIRECTED PRN Saline Lock Insert [OM.PC] Stat 07/17/21 11:52 COVID-19/FLU A+B/RSV [MOLEC] Stat
[2021-07-17] MEDS ORDERED: methylPREDNISolone Sodium Succinate 125 MG/2 ML SDV IVPUSH ONE (13:44)
== END 2021-07-17 15:04 | disposition home or self-care (01) ==
LOC: JD.ED 11:23
DX: J44.1 Chronic obstructive pulmonary disease with (acute) exacerbation (principal); Z72.0 Tobacco use; Z20.822 Contact with and (suspected) exposure to COVID-19
CPT/HCPCS: 0241U; 36415; 36600; 71045; 80053; 82803; 83735; 83880; 84484; 85025; 85379; 86140; 93005; 96374; 99285; J2930

== ENCOUNTER 2021-07-23 00:41 | Emergency (ER) | payer MEDICAID ==
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
== END 2021-07-23 04:45 | disposition home or self-care (01) ==
LOC: JD.ED 00:41
DX: T20.14XA Burn of first degree of nose (septum), initial encounter (principal); J44.1 Chronic obstructive pulmonary disease with (acute) exacerbation; F17.210 Nicotine dependence, cigarettes, uncomplicated; Z79.899 Other long term (current) drug therapy
CPT/HCPCS: 99283

== ENCOUNTER 2024-02-02 11:28 | Emergency (ER) | payer MEDICAID ==
[2024-02-02] MEDS: Albuterol/Ipratropium 3.0-0.5 MG/3 ML Neb Soln NEB ONE (12:31)
[2024-02-02] MEDS: methylPREDNISolone Sodium Succinate 125 MG/2 ML SDV IVPUSH ONE (12:32)
[2024-02-02] MEDS: Sodium Chloride 0.9% 10 ML Syringe FLUSH PRN (12:35)
[2024-02-02 12:43] LABS: BASOPHILS ABSOLUTE AUTO 0.1 K/mm3 (0.0-0.2); BASOPHILS PERCENT AUTO 0.6 % (0.0-1.0); EOSINOPHILS ABSOLUTE AUTO 0.7 K/mm3 (0.0-0.4); EOSINOPHILS PERCENT AUTO 7.6 % (0.0-6.0); HEMATOCRIT 50.1 % (42.0-52.0); HEMOGLOBIN 16.6 gm/dl (14.0-18.0); IMMATURE GRAN ABSOLUTE AUTO 0.06 K/mm3 (0.00-0.05); IMMATURE GRAN PERCENT AUTO 0.6 % (0.0-0.4); LYMPHOCYTES ABSOLUTE AUTO 2.1 K/mm3 (1.0-4.8); MEAN CORPUSCULAR HEMOGLOBIN 31.9 pg (28.0-32.0); MEAN CORPUSCULAR HGB CONC 33.1 g/dl (32.0-36.0); MEAN CORPUSCULAR VOLUME 96.3 fl (83.0-99.0); MEAN PLATELET VOLUME 8.7 fl (9.4-12.4); MONOCYTES ABSOLUTE AUTO 0.6 K/mm3 (0.0-0.8); MONOCYTES PERCENT AUTO 6.8 % (0.0-8.0); NEUTROPHILS ABSOLUTE AUTO 5.7 K/mm3 (1.8-7.7); NEUTROPHILS PERCENT AUTO 61.4 % (41.0-71.0); PLATELET COUNT,PLT 186 K/mm3 (150-400); WHITE BLOOD CELL COUNT,WBC 9.32 K/mm3 (3.9-11.3)
[2024-02-02 13:13] LABS: A/G RATIO 1.1 (1-2); ALBUMIN 3.5 g/dl (3.4-5.0); ANION GAP 12.4 (5-15); BILIRUBIN TOTAL 0.6 mg/dL (0.2-1.0); CALCIUM 8.8 mg/dL (8.5-10.1); CREATININE 0.7 mg/dL (0.7-1.3); EST CRCL DRUG DOSING (CG) 102.38 mL/min; PROTEIN TOTAL,TP 6.8 g/dl (6.4-8.2)
[2024-02-02 13:16] LABS: POTASSIUM,K 4.4 mEq/L (3.5-5.1)
== END 2024-02-02 14:50 | disposition home or self-care (01) ==
LOC: JD.ED 11:28
DX: J44.1 Chronic obstructive pulmonary disease with (acute) exacerbation (principal); J40 Bronchitis, not specified as acute or chronic; F17.210 Nicotine dependence, cigarettes, uncomplicated
CPT/HCPCS: 36415; 71045; 80053; 84484; 85025; 93005; 94640; 96374; 99285; J2919; J3490; 93010; 99284; J7620-GY

== ENCOUNTER 2024-02-13 22:23 | Emergency (ER) | payer MEDICAID ==
[2024-02-13] MEDS ORDERED: Sodium Chloride 0.9% 10 ML Syringe FLUSH PRN (22:54)
[2024-02-13] MEDS: Albuterol/Ipratropium 3.0-0.5 MG/3 ML Neb Soln NEB SCH (23:05)
[2024-02-13] MEDS: methylPREDNISolone Sodium Succinate 125 MG/2 ML SDV IVPUSH ONE (23:19)
[2024-02-13] MEDS: Sodium Chloride 0.9% 1,000 ML IV ONE (23:21)
[2024-02-13 23:25] LABS: BASOPHILS ABSOLUTE AUTO 0.1 K/mm3 (0.0-0.2); BASOPHILS PERCENT AUTO 0.5 % (0.0-1.0); EOSINOPHILS ABSOLUTE AUTO 0.7 K/mm3 (0.0-0.4); EOSINOPHILS PERCENT AUTO 7.5 % (0.0-6.0); HEMATOCRIT 50.1 % (42.0-52.0); HEMOGLOBIN 16.3 gm/dl (14.0-18.0); IMMATURE GRAN ABSOLUTE AUTO 0.05 K/mm3 (0.00-0.05); IMMATURE GRAN PERCENT AUTO 0.5 % (0.0-0.4); LYMPHOCYTES ABSOLUTE AUTO 1.8 K/mm3 (1.0-4.8); LYMPHOCYTES PERCENT AUTO 18.7 % (24.0-44.0); MEAN CORPUSCULAR HEMOGLOBIN 31.8 pg (28.0-32.0); MEAN CORPUSCULAR HGB CONC 32.5 g/dl (32.0-36.0); MEAN CORPUSCULAR VOLUME 97.9 fl (83.0-99.0); MEAN PLATELET VOLUME 8.5 fl (9.4-12.4); MONOCYTES ABSOLUTE AUTO 0.5 K/mm3 (0.0-0.8); MONOCYTES PERCENT AUTO 5.3 % (0.0-8.0); NEUTROPHILS ABSOLUTE AUTO 6.5 K/mm3 (1.8-7.7); NEUTROPHILS PERCENT AUTO 67.5 % (41.0-71.0); PLATELET COUNT,PLT 187 K/mm3 (150-400); RED BLOOD CELL COUNT 5.12 M/mm3 (4.52-5.90); WHITE BLOOD CELL COUNT,WBC 9.59 K/mm3 (3.9-11.3)
[2024-02-13] MEDS: Albuterol 0.083% 2.5 MG/3 ML Neb Soln NEB ONE (23:45)
[2024-02-13 23:57] LABS: A/G RATIO 1.2 (1-2); ALBUMIN 3.4 g/dl (3.4-5.0); ANION GAP 10.4 (5-15); BILIRUBIN TOTAL 0.4 mg/dL (0.2-1.0); CALCIUM 9.4 mg/dL (8.5-10.1); CREATININE 0.7 mg/dL (0.7-1.3); EST CRCL DRUG DOSING (CG) 103.09 mL/min; POTASSIUM,K 4.4 mEq/L (3.5-5.1); PROTEIN TOTAL,TP 6.3 g/dl (6.4-8.2)
[2024-02-14] MEDS: Albuterol 0.083% 2.5 MG/3 ML Neb Soln ONE (00:52)
[2024-02-14 01:42] LABS: CORONAVIRUS COVID-19 NAA NEGATIVE (NEGATIVE); INFLUENZA A NAA NEGATIVE (NEGATIVE); RESPIRATORY SYNCYTIAL VIR NAA NEGATIVE (NEGATIVE)
[2024-02-14] MEDS: Albuterol 0.083% 2.5 MG/3 ML Neb Soln NEB ONE (03:10)
== END 2024-02-14 03:40 | disposition left against medical advice (07) ==
LOC: JD.ED 22:23
DX: J44.1 Chronic obstructive pulmonary disease with (acute) exacerbation (principal); R79.89 Other specified abnormal findings of blood chemistry; Z86.79 Personal history of other diseases of the circulatory system; Z79.51 Long term (current) use of inhaled steroids
CPT/HCPCS: 0241U; 36415; 71045; 80053; 83735; 83880; 84484; 85025; 85379; 93005; 94640; 96374; 99285; J2919; J7030; J7620-GY

== ENCOUNTER 2024-03-14 10:54 | Emergency (ER) | payer MEDICAID ==
[2024-03-14 12:28] LABS: BASOPHILS ABSOLUTE AUTO 0.1 K/mm3 (0.0-0.2); BASOPHILS PERCENT AUTO 0.5 % (0.0-1.0); EOSINOPHILS ABSOLUTE AUTO 0.6 K/mm3 (0.0-0.4); EOSINOPHILS PERCENT AUTO 5.7 % (0.0-6.0); HEMATOCRIT 49.3 % (42.0-52.0); HEMOGLOBIN 16.5 gm/dl (14.0-18.0); IMMATURE GRAN ABSOLUTE AUTO 0.05 K/mm3 (0.00-0.05); IMMATURE GRAN PERCENT AUTO 0.5 % (0.0-0.4); LYMPHOCYTES ABSOLUTE AUTO 2.1 K/mm3 (1.0-4.8); LYMPHOCYTES PERCENT AUTO 20.9 % (24.0-44.0); MEAN CORPUSCULAR HEMOGLOBIN 32.4 pg (28.0-32.0); MEAN CORPUSCULAR HGB CONC 33.5 g/dl (32.0-36.0); MEAN CORPUSCULAR VOLUME 96.9 fl (83.0-99.0); MEAN PLATELET VOLUME 8.7 fl (9.4-12.4); MONOCYTES ABSOLUTE AUTO 0.7 K/mm3 (0.0-0.8); MONOCYTES PERCENT AUTO 6.7 % (0.0-8.0); NEUTROPHILS ABSOLUTE AUTO 6.7 K/mm3 (1.8-7.7); NEUTROPHILS PERCENT AUTO 65.7 % (41.0-71.0); PLATELET COUNT,PLT 178 K/mm3 (150-400); RED BLOOD CELL COUNT 5.09 M/mm3 (4.52-5.90); WHITE BLOOD CELL COUNT,WBC 10.21 K/mm3 (3.9-11.3)
[2024-03-14 13:04] LABS: A/G RATIO 1.3 (1-2); ALBUMIN 3.6 g/dl (3.4-5.0); ANION GAP 9.1 (5-15); BILIRUBIN TOTAL 0.5 mg/dL (0.2-1.0); BUN/CREATININE RATIO 11.3 (14-18); CALCIUM 8.6 mg/dL (8.5-10.1); CREATININE 0.8 mg/dL (0.7-1.3); EST CRCL DRUG DOSING (CG) 83.99 mL/min; POTASSIUM,K 4.1 mEq/L (3.5-5.1); PROTEIN TOTAL,TP 6.3 g/dl (6.4-8.2)
[2024-03-14 13:05] LABS: APPEARANCE,URINE CLEAR (Clear); BILIRUBIN,URINE NEGATIVE (Negative); COLOR,URINE YELLOW (Yellow); GLUCOSE,URINE NEGATIVE (Negative); KETONES,URINE NEGATIVE (Negative); LEUKOCYTE ESTERASE,URINE NEGATIVE (Negative); NITRITE,URINE NEGATIVE (Negative); OCCULT BLOOD,URINE NEGATIVE (Negative); PH,URINE 7.5 (5.0-8.0); PROTEIN,URINE TRACE (Negative)
[2024-03-14] MEDS: Albuterol/Ipratropium 3.0-0.5 MG/3 ML Neb Soln NEB ONE ×2 (13:05→15:10)
[2024-03-14] MEDS: methylPREDNISolone Sodium Succinate 125 MG/2 ML SDV IVPUSH ONE (13:58)
[2024-03-14 14:28] LABS: BACTERIA,URINE FEW /hpf (FEW); EPITHELIAL CELLS,URINE 0-5 /hpf (0-5); MUCUS,URINE MODERATE /hpf (FEW); RBC,URINE 0-5 /hpf (0-5); WBC,URINE 0-5 /hpf (0-5)
== END 2024-03-14 16:28 | disposition home or self-care (01) ==
LOC: JD.ED 10:54
DX: J44.1 Chronic obstructive pulmonary disease with (acute) exacerbation (principal); Z79.899 Other long term (current) drug therapy
CPT/HCPCS: 36415; 71045; 80053; 81001; 84484; 85025; 87635; 93005; 94640; 96374; 99285; J2919; 93010; 99283; J7620-GY; U0002

== ENCOUNTER 2024-05-08 11:32 | Emergency (ER) | payer MEDICAID ==
[2024-05-08] MEDS ORDERED: Sodium Chloride 0.9% 10 ML Syringe FLUSH PRN (11:58)
[2024-05-08] MEDS: methylPREDNISolone Sodium Succinate 125 MG/2 ML SDV IVPUSH ONE (12:35)
[2024-05-08] MEDS: Sodium Chloride 0.9% 1,000 ML IV SCH ×2 (12:35→15:30)
[2024-05-08 12:39] LABS: BASOPHILS PERCENT AUTO 0.4 % (0.0-1.0); EOSINOPHILS ABSOLUTE AUTO 0.6 K/mm3 (0.0-0.4); EOSINOPHILS PERCENT AUTO 6.3 % (0.0-6.0); HEMATOCRIT 49.2 % (42.0-52.0); HEMOGLOBIN 16.6 gm/dl (14.0-18.0); IMMATURE GRAN ABSOLUTE AUTO 0.06 K/mm3 (0.00-0.05); IMMATURE GRAN PERCENT AUTO 0.7 % (0.0-0.4); LYMPHOCYTES ABSOLUTE AUTO 1.9 K/mm3 (1.0-4.8); LYMPHOCYTES PERCENT AUTO 20.6 % (24.0-44.0); MEAN CORPUSCULAR HEMOGLOBIN 32.2 pg (28.0-32.0); MEAN CORPUSCULAR HGB CONC 33.7 g/dl (32.0-36.0); MEAN CORPUSCULAR VOLUME 95.3 fl (83.0-99.0); MEAN PLATELET VOLUME 8.7 fl (9.4-12.4); MONOCYTES ABSOLUTE AUTO 0.6 K/mm3 (0.0-0.8); MONOCYTES PERCENT AUTO 6.2 % (0.0-8.0); NEUTROPHILS ABSOLUTE AUTO 5.9 K/mm3 (1.8-7.7); NEUTROPHILS PERCENT AUTO 65.8 % (41.0-71.0); PLATELET COUNT,PLT 251 K/mm3 (150-400); RED BLOOD CELL COUNT 5.16 M/mm3 (4.52-5.90); WHITE BLOOD CELL COUNT,WBC 8.99 K/mm3 (3.9-11.3)
[2024-05-08] MEDS: Albuterol/Ipratropium 3.0-0.5 MG/3 ML Neb Soln NEB ONE ×2 (12:55→17:59)
[2024-05-08 13:08] LABS: INR 0.97; PROTHROMBIN TIME 10.3 SECONDS (9.7-12.0)
[2024-05-08 13:09] LABS: PTT,PARTIAL THROMBOPLSTIN TIME 24.3 SECONDS (21.7-31.4)
[2024-05-08 13:11] LABS: LACTIC ACID 0.5 mmol/L (0.4-2.0)
[2024-05-08 13:17] LABS: A/G RATIO 1.2 (1-2); ALBUMIN 3.6 g/dl (3.4-5.0); ANION GAP 11.7 (5-15); BILIRUBIN TOTAL 0.5 mg/dL (0.2-1.0); BUN/CREATININE RATIO 11.4 (14-18); C-REACTIVE PROTEIN 0.19 mg/dL (<0.30); CALCIUM 9.1 mg/dL (8.5-10.1); CREATININE 0.7 mg/dL (0.7-1.3); EST CRCL DRUG DOSING (CG) 106.79 mL/min; MAGNESIUM 1.9 mg/dL (1.8-2.4); POTASSIUM,K 3.7 mEq/L (3.5-5.1); PROTEIN TOTAL,TP 6.6 g/dl (6.4-8.2)
[2024-05-08 14:50] LABS: CORONAVIRUS COVID-19 NAA NEGATIVE (NEGATIVE); INFLUENZA A NAA NEGATIVE (NEGATIVE); RESPIRATORY SYNCYTIAL VIR NAA NEGATIVE (NEGATIVE)
[2024-05-08] MEDS: Levofloxacin/Dextrose 5%-Water 750 MG in Premix Bag 1 BAG IV ONE (14:54)
== END 2024-05-08 18:52 | disposition home or self-care (01) ==
LOC: JD.ED 11:32
DX: J44.1 Chronic obstructive pulmonary disease with (acute) exacerbation (principal); R06.02 Shortness of breath; F17.210 Nicotine dependence, cigarettes, uncomplicated; Z79.899 Other long term (current) drug therapy
CPT/HCPCS: 0241U; 36415; 71045; 80053; 83605; 83735; 83880; 84484; 85025; 85610; 85730; 86140; 93005; 94640; 96361; 96365; 96366; 96375; 99285; J1956; J2919; J7030; 93010; 99284; J7620-GY

== ENCOUNTER 2024-10-23 10:45 | Emergency (ER) | payer MEDICAID ==
[2024-10-23] MEDS ORDERED: Sodium Chloride 0.9% 10 ML Syringe FLUSH PRN (11:07)
[2024-10-23] MEDS: methylPREDNISolone Sodium Succinate 125 MG/2 ML SDV IVPUSH ONE (11:15)
[2024-10-23] MEDS: Albuterol/Ipratropium 3.0-0.5 MG/3 ML Neb Soln NEB ONE ×2 (11:18→13:31)
[2024-10-23 12:55] LABS: BASOPHILS ABSOLUTE AUTO 0.1 K/mm3 (0.0-0.2); BASOPHILS PERCENT AUTO 0.4 % (0.0-1.0); EOSINOPHILS ABSOLUTE AUTO 0.8 K/mm3 (0.0-0.4); EOSINOPHILS PERCENT AUTO 6.5 % (0.0-6.0); HEMOGLOBIN 16.1 gm/dl (14.0-18.0); IMMATURE GRAN ABSOLUTE AUTO 0.04 K/mm3 (0.00-0.05); IMMATURE GRAN PERCENT AUTO 0.3 % (0.0-0.4); LYMPHOCYTES ABSOLUTE AUTO 1.2 K/mm3 (1.0-4.8); LYMPHOCYTES PERCENT AUTO 9.7 % (24.0-44.0); MEAN CORPUSCULAR HEMOGLOBIN 32.1 pg (28.0-32.0); MEAN CORPUSCULAR HGB CONC 32.9 g/dl (32.0-36.0); MEAN CORPUSCULAR VOLUME 97.8 fl (83.0-99.0); MEAN PLATELET VOLUME 8.8 fl (9.4-12.4); MONOCYTES ABSOLUTE AUTO 0.3 K/mm3 (0.0-0.8); MONOCYTES PERCENT AUTO 2.5 % (0.0-8.0); NEUTROPHILS ABSOLUTE AUTO 9.5 K/mm3 (1.8-7.7); NEUTROPHILS PERCENT AUTO 80.6 % (41.0-71.0); PLATELET COUNT,PLT 213 K/mm3 (150-400); RED BLOOD CELL COUNT 5.01 M/mm3 (4.52-5.90); WHITE BLOOD CELL COUNT,WBC 11.85 K/mm3 (3.9-11.3)
[2024-10-23 13:24] LABS: A/G RATIO 1.2 (1-2); ALBUMIN 3.4 g/dl (3.4-5.0); ANION GAP 7.8 (5-15); BILIRUBIN TOTAL 0.4 mg/dL (0.2-1.0); BUN/CREATININE RATIO 12.2 (14-18); CALCIUM 9.3 mg/dL (8.5-10.1); CREATININE 0.9 mg/dL (0.7-1.3); EST CRCL DRUG DOSING (CG) 87.69 mL/min; POTASSIUM,K 3.8 mEq/L (3.5-5.1); PROTEIN TOTAL,TP 6.2 g/dl (6.4-8.2)
== END 2024-10-23 14:07 | disposition home or self-care (01) ==
LOC: JD.ED 10:45
DX: J44.1 Chronic obstructive pulmonary disease with (acute) exacerbation (principal); F17.210 Nicotine dependence, cigarettes, uncomplicated; J45.909 Unspecified asthma, uncomplicated; Z79.899 Other long term (current) drug therapy
CPT/HCPCS: 36415; 71045; 80053; 85025; 87428; 93005; 94640; 96374; 99285; J2919; J7620; 99284; A9270-GY

== ENCOUNTER 2025-03-18 15:12 | Emergency (ER) | payer MEDICAID ==
[2025-03-18 15:50] LABS: BASOPHILS ABSOLUTE AUTO 0.1 K/mm3 (0.0-0.2); BASOPHILS PERCENT AUTO 0.6 % (0.0-1.0); EOSINOPHILS ABSOLUTE AUTO 0.9 K/mm3 (0.0-0.4); EOSINOPHILS PERCENT AUTO 9.1 % (0.0-6.0); IMMATURE GRAN ABSOLUTE AUTO 0.05 K/mm3 (0.00-0.05); IMMATURE GRAN PERCENT AUTO 0.5 % (0.0-0.4); LYMPHOCYTES ABSOLUTE AUTO 2.4 K/mm3 (1.0-4.8); LYMPHOCYTES PERCENT AUTO 23.7 % (24.0-44.0); MEAN PLATELET VOLUME 8.7 fl (9.4-12.4); MONOCYTES ABSOLUTE AUTO 0.5 K/mm3 (0.0-0.8); MONOCYTES PERCENT AUTO 5.1 % (0.0-8.0); NEUTROPHILS ABSOLUTE AUTO 6.2 K/mm3 (1.8-7.7); NEUTROPHILS PERCENT AUTO 61.0 % (41.0-71.0); NRBC ABSOLUTE 0.00 (0.00-0.02); NRBC PERCENT 0.0 % (0.0-0.2); PLATELET COUNT,PLT 249 K/mm3 (150-400); RED BLOOD CELL COUNT 5.16 M/mm3 (4.52-5.90); WHITE BLOOD CELL COUNT,WBC 10.13 K/mm3 (3.9-11.3)
[2025-03-18 16:17] LABS: A/G RATIO 1.0 (1-2); ALANINE AMINOTRANSFERASE,ALT 25.0 U/L (16-63); ASPARTATE AMNIOTRANSFERASE,AST 14.0 U/L (15-37); BILIRUBIN TOTAL 0.2 mg/dL (0.2-1.0); BLOOD UREA NITROGEN,BUN 12.0 mg/dL (7-18); CARBON DIOXIDE,CO2 33.0 mEq/L (21-32); CHLORIDE,CL 105.0 mEq/L (98-107); CREATINE KINASE,CK 71.0 U/L (39-308); CREATININE 0.6 mg/dL (0.7-1.3); EST CRCL DRUG DOSING (CG) 140.11 mL/min; ESTIMATED GFR 109.0 mL/min (>60); ETHANOL BLOOD MEDICAL 0.24 gm% (0.00); GLUCOSE RANDOM 121.0 mg/dL (70-99); POTASSIUM,K 4.1 mEq/L (3.5-5.1); PROTEIN TOTAL,TP 6.7 g/dl (6.4-8.2); SODIUM,NA 143.0 mEq/L (136-145)
[2025-03-18] MEDS: Thiamine 200 MG/2 ML MDV IVPUSH ONE (16:50)
== END 2025-03-18 17:35 | disposition home or self-care (01) ==
LOC: JD.ED 15:12
DX: F10.220 Alcohol dependence with intoxication, uncomplicated (principal); J44.9 Chronic obstructive pulmonary disease, unspecified; Z99.81 Dependence on supplemental oxygen; Z79.51 Long term (current) use of inhaled steroids; Z79.899 Other long term (current) drug therapy; Y90.9 Presence of alcohol in blood, level not specified
CPT/HCPCS: 36415; 80053; 80307; 82550; 83690; 83735; 85025; 96361; 96374; 99284; J3411; J7030; 93010

== ENCOUNTER 2025-04-10 13:44 | Inpatient (IN) | payer OTHER, MEDICAID ==
[2025-04-10] MEDS: LORazepam 2 MG/ML SDV IVPUSH ONE ×2 (14:12→18:21)
[2025-04-10 15:36] LABS: BASOPHILS ABSOLUTE AUTO 0.0 K/mm3 (0.0-0.2); BASOPHILS PERCENT AUTO 0.5 % (0.0-1.0); EOSINOPHILS ABSOLUTE AUTO 0.6 K/mm3 (0.0-0.4); EOSINOPHILS PERCENT AUTO 6.4 % (0.0-6.0); IMMATURE GRAN ABSOLUTE AUTO 0.05 K/mm3 (0.00-0.05); IMMATURE GRAN PERCENT AUTO 0.6 % (0.0-0.4); LYMPHOCYTES ABSOLUTE AUTO 2.0 K/mm3 (1.0-4.8); LYMPHOCYTES PERCENT AUTO 22.6 % (24.0-44.0); MEAN PLATELET VOLUME 8.9 fl (9.4-12.4); MONOCYTES ABSOLUTE AUTO 0.5 K/mm3 (0.0-0.8); MONOCYTES PERCENT AUTO 6.2 % (0.0-8.0); NEUTROPHILS ABSOLUTE AUTO 5.6 K/mm3 (1.8-7.7); NEUTROPHILS PERCENT AUTO 63.7 % (41.0-71.0); NRBC ABSOLUTE 0.00 (0.00-0.02); NRBC PERCENT 0.0 % (0.0-0.2); PLATELET COUNT,PLT 216 K/mm3 (150-400); RED BLOOD CELL COUNT 4.57 M/mm3 (4.52-5.90); WHITE BLOOD CELL COUNT,WBC 8.75 K/mm3 (3.9-11.3)
[2025-04-10 16:16] LABS: A/G RATIO 1.1 (1-2); ALANINE AMINOTRANSFERASE,ALT 41.0 U/L (16-63); ASPARTATE AMNIOTRANSFERASE,AST 30.0 U/L (15-37); BILIRUBIN TOTAL 0.3 mg/dL (0.2-1.0); BLOOD UREA NITROGEN,BUN 11.0 mg/dL (7-18); CARBON DIOXIDE,CO2 29.0 mEq/L (21-32); CHLORIDE,CL 105.0 mEq/L (98-107); CREATINE KINASE,CK 102.0 U/L (39-308); CREATININE 0.6 mg/dL (0.7-1.3); EST CRCL DRUG DOSING (CG) 122.85 mL/min; ESTIMATED GFR 109.0 mL/min (>60); ETHANOL BLOOD MEDICAL 0.13 gm% (0.00); GLUCOSE RANDOM 82.0 mg/dL (70-99); POTASSIUM,K 3.9 mEq/L (3.5-5.1); PROTEIN TOTAL,TP 5.8 g/dl (6.4-8.2); SODIUM,NA 144.0 mEq/L (136-145); TSH 0.316 uIU/mL (0.358-3.74)
[2025-04-10 17:04] LABS: T4 FREE 0.8 ng/dL (0.76-1.46)
[2025-04-11 04:49] LABS: APPEARANCE,URINE CLEAR (Clear); GLUCOSE,URINE NEGATIVE (Negative); OCCULT BLOOD,URINE NEGATIVE (Negative)
[2025-04-11 04:58] LABS: BUPRENORPHINE SCREEN,URINE NEGATIVE (CUTOFF=10); METHADONE SCREEN, URINE NEGATIVE (CUT0FF=200); METHAMPHETAMINES SCREEN, URINE NEGATIVE (CUTOFF=500); OXYCODONE SCREEN,URINE PRESUMPTIVE POSITIVE (CUT0FF=100); THC SCREEN,URINE 20 NG/ML PRESUMPTIVE POSITIVE (CUTOFF=50)
[2025-04-11 05:46] LABS: AMPHETAMINES SCREEN, URINE NEGATIVE (CUTOFF=500)
[2025-04-11] MEDS: LORazepam 2 MG/ML SDV IVPUSH ONE (08:50)
[2025-04-11] MEDS: Sodium Chloride 0.9% 10 ML Syringe FLUSH PRN (08:52)
[2025-04-11] MEDS ORDERED: Ondansetron 4 MG/2 ML SDV IVPUSH PRN (09:22)
[2025-04-11] MEDS: Magnesium Sulfat/D5W 1GM/100ML 1 GM in Premix Bag 1 BAG IV ONE (09:41)
[2025-04-11] MEDS: Thiamine 200 MG/2 ML MDV IVPUSH ONE (09:42)
[2025-04-11] MEDS: LORazepam 2 MG/ML SDV IV PRN (20:36)
[2025-04-12 04:53] LABS: MEAN PLATELET VOLUME 9.0 fl (9.4-12.4); NRBC ABSOLUTE 0.00 (0.00-0.02); NRBC PERCENT 0.0 % (0.0-0.2); PLATELET COUNT,PLT 172 K/mm3 (150-400); RED BLOOD CELL COUNT 4.08 M/mm3 (4.52-5.90); WHITE BLOOD CELL COUNT,WBC 7.82 K/mm3 (3.9-11.3)
[2025-04-12 05:25] LABS: A/G RATIO 1.0 (1-2); ALANINE AMINOTRANSFERASE,ALT 32.0 U/L (16-63); ASPARTATE AMNIOTRANSFERASE,AST 19.0 U/L (15-37); BILIRUBIN TOTAL 0.6 mg/dL (0.2-1.0); BLOOD UREA NITROGEN,BUN 10.0 mg/dL (7-18); CARBON DIOXIDE,CO2 32.0 mEq/L (21-32); CHLORIDE,CL 105.0 mEq/L (98-107); CREATININE 0.7 mg/dL (0.7-1.3); EST CRCL DRUG DOSING (CG) 106.77 mL/min; ESTIMATED GFR 104.0 mL/min (>60); GLUCOSE RANDOM 105.0 mg/dL (70-99); POTASSIUM,K 3.3 mEq/L (3.5-5.1); PROTEIN TOTAL,TP 5.3 g/dl (6.4-8.2); SODIUM,NA 141.0 mEq/L (136-145)
[2025-04-12] MEDS: Magnesium Sulfate 2 GM/50 mL 2 GM in Premix Bag 1 BAG IV ONE (07:21)
[2025-04-12] MEDS: Potassium Chloride 20 MEQ Tab.ER PO SCH (08:53)
[2025-04-12] MEDS ORDERED: ROFLUMILAST 500 MCG PO SCH (09:00)
[2025-04-12] MEDS: Formoterol/Mometasone 200-5 MCG 8.8 GM Inhaler INH SCH (09:03)
[2025-04-13 05:09] LABS: MEAN PLATELET VOLUME 9.1 fl (9.4-12.4); NRBC ABSOLUTE 0.00 (0.00-0.02); NRBC PERCENT 0.0 % (0.0-0.2); PLATELET COUNT,PLT 171 K/mm3 (150-400); RED BLOOD CELL COUNT 4.27 M/mm3 (4.52-5.90); WHITE BLOOD CELL COUNT,WBC 7.61 K/mm3 (3.9-11.3)
[2025-04-13 05:38] LABS: A/G RATIO 0.9 (1-2); ALANINE AMINOTRANSFERASE,ALT 35.0 U/L (16-63); ASPARTATE AMNIOTRANSFERASE,AST 17.0 U/L (15-37); BILIRUBIN TOTAL 0.5 mg/dL (0.2-1.0); BLOOD UREA NITROGEN,BUN 10.0 mg/dL (7-18); CARBON DIOXIDE,CO2 31.0 mEq/L (21-32); CHLORIDE,CL 102.0 mEq/L (98-107); CREATININE 0.6 mg/dL (0.7-1.3); EST CRCL DRUG DOSING (CG) 124.57 mL/min; ESTIMATED GFR 109.0 mL/min (>60); GLUCOSE RANDOM 100.0 mg/dL (70-99); POTASSIUM,K 3.8 mEq/L (3.5-5.1); PROTEIN TOTAL,TP 5.8 g/dl (6.4-8.2); SODIUM,NA 140.0 mEq/L (136-145)
[2025-04-14 04:39] LABS: MEAN PLATELET VOLUME 9.1 fl (9.4-12.4); NRBC ABSOLUTE 0.00 (0.00-0.02); NRBC PERCENT 0.0 % (0.0-0.2); PLATELET COUNT,PLT 200 K/mm3 (150-400); RED BLOOD CELL COUNT 4.28 M/mm3 (4.52-5.90); WHITE BLOOD CELL COUNT,WBC 5.85 K/mm3 (3.9-11.3)
[2025-04-14 05:15] LABS: A/G RATIO 0.8 (1-2); ALANINE AMINOTRANSFERASE,ALT 38.0 U/L (16-63); ASPARTATE AMNIOTRANSFERASE,AST 21.0 U/L (15-37); BILIRUBIN TOTAL 0.3 mg/dL (0.2-1.0); BLOOD UREA NITROGEN,BUN 14.0 mg/dL (7-18); CARBON DIOXIDE,CO2 33.0 mEq/L (21-32); CHLORIDE,CL 103.0 mEq/L (98-107); CREATININE 0.6 mg/dL (0.7-1.3); EST CRCL DRUG DOSING (CG) 120.06 mL/min; ESTIMATED GFR 109.0 mL/min (>60); GLUCOSE RANDOM 109.0 mg/dL (70-99); POTASSIUM,K 4.2 mEq/L (3.5-5.1); PROTEIN TOTAL,TP 6.0 g/dl (6.4-8.2); SODIUM,NA 140.0 mEq/L (136-145)
== END 2025-04-14 12:26 | disposition home or self-care (01) | DRG 897 ==
LOC: JD.ED 13:44 → JD.ICU 04-11 08:33 → JD.MS 04-13 18:23
PROVIDERS: ADMIT Internal Medicine; ATTEND Internal Medicine
PROC: HZ2ZZZZ Detoxification Services for Substance Abuse Treatment (ICD-10-PCS; principal; 2025-04-11)
DX: F10.139 Alcohol abuse with withdrawal, unspecified (principal); R91.1 Solitary pulmonary nodule; H54.7 Unspecified visual loss; J44.9 Chronic obstructive pulmonary disease, unspecified; M54.9 Dorsalgia, unspecified; G89.29 Other chronic pain; F17.200 Nicotine dependence, unspecified, uncomplicated; F15.10 Other stimulant abuse, uncomplicated; N40.0 Benign prostatic hyperplasia without lower urinary tract symptoms; Z99.81 Dependence on supplemental oxygen; Z79.899 Other long term (current) drug therapy
CPT/HCPCS: 36415; 70450; 70450-26; 71045; 71045-26; 72125; 72125-26; 80053; 80143; 80179; 80306; 80307; 81003; 82140; 82550; 83690; 83735; 84439; 84443; 84484; 85025; 85027; 93005; 93010; 94640; 94761; 96361; 96374; 96376; 97110-GP; 97112-GP; 97116-GP; 97161-GP; 97166-GO; 97530-GP; 97535-GO; 99285; 99285-25; A9270-GY; J1650; J2060; J3411; J3475; J3480; J7030; J7050

== ENCOUNTER 2025-04-17 16:02 | Emergency (ER) | payer MEDICAID ==
[2025-04-17] MEDS ORDERED: Sodium Chloride 0.9% 10 ML Syringe FLUSH PRN (16:31)
[2025-04-17 17:01] LABS: BASOPHILS ABSOLUTE AUTO 0.1 K/mm3 (0.0-0.2); BASOPHILS PERCENT AUTO 0.7 % (0.0-1.0); EOSINOPHILS ABSOLUTE AUTO 0.6 K/mm3 (0.0-0.4); EOSINOPHILS PERCENT AUTO 6.7 % (0.0-6.0); IMMATURE GRAN ABSOLUTE AUTO 0.03 K/mm3 (0.00-0.05); IMMATURE GRAN PERCENT AUTO 0.4 % (0.0-0.4); LYMPHOCYTES ABSOLUTE AUTO 1.7 K/mm3 (1.0-4.8); LYMPHOCYTES PERCENT AUTO 21.0 % (24.0-44.0); MEAN PLATELET VOLUME 9.0 fl (9.4-12.4); MONOCYTES ABSOLUTE AUTO 0.6 K/mm3 (0.0-0.8); MONOCYTES PERCENT AUTO 7.7 % (0.0-8.0); NEUTROPHILS ABSOLUTE AUTO 5.2 K/mm3 (1.8-7.7); NEUTROPHILS PERCENT AUTO 63.5 % (41.0-71.0); NRBC ABSOLUTE 0.00 (0.00-0.02); NRBC PERCENT 0.0 % (0.0-0.2); PLATELET COUNT,PLT 225 K/mm3 (150-400); RED BLOOD CELL COUNT 4.57 M/mm3 (4.52-5.90); WHITE BLOOD CELL COUNT,WBC 8.23 K/mm3 (3.9-11.3)
[2025-04-17 17:32] LABS: A/G RATIO 0.9 (1-2); ALANINE AMINOTRANSFERASE,ALT 71.0 U/L (16-63); ASPARTATE AMNIOTRANSFERASE,AST 42.0 U/L (15-37); BILIRUBIN TOTAL 0.2 mg/dL (0.2-1.0); BLOOD UREA NITROGEN,BUN 8.0 mg/dL (7-18); CARBON DIOXIDE,CO2 33.0 mEq/L (21-32); CHLORIDE,CL 104.0 mEq/L (98-107); CREATININE 0.6 mg/dL (0.7-1.3); EST CRCL DRUG DOSING (CG) 120.39 mL/min; ESTIMATED GFR 109.0 mL/min (>60); ETHANOL BLOOD MEDICAL 0.09 gm% (0.00); GLUCOSE RANDOM 106.0 mg/dL (70-99); POTASSIUM,K 4.1 mEq/L (3.5-5.1); PROTEIN TOTAL,TP 6.7 g/dl (6.4-8.2); SODIUM,NA 144.0 mEq/L (136-145); TROPONIN I HIGH SENSITIVITY 6.0 pg/mL (<=76); TSH 1.058 uIU/mL (0.358-3.74)
[2025-04-17 20:02] LABS: BUPRENORPHINE SCREEN,URINE NEGATIVE (CUTOFF=10); METHADONE SCREEN, URINE NEGATIVE (CUT0FF=200); METHAMPHETAMINES SCREEN, URINE NEGATIVE (CUTOFF=500); OXYCODONE SCREEN,URINE PRESUMPTIVE POSITIVE (CUT0FF=100); THC SCREEN,URINE 20 NG/ML PRESUMPTIVE POSITIVE (CUTOFF=50)
[2025-04-17 20:04] LABS: AMPHETAMINES SCREEN, URINE NEGATIVE (CUTOFF=500)
== END 2025-04-17 23:05 | disposition other institution (70) ==
LOC: JD.ED 16:02
DX: F10.931 Alcohol use, unspecified with withdrawal delirium (principal); J44.89 Other specified chronic obstructive pulmonary disease; Z79.899 Other long term (current) drug therapy
CPT/HCPCS: 36415; 71045; 73110; 73564; 80053; 80143; 80179; 80306; 80307; 83735; 84443; 84484; 85025; 93005; 96360; 99285; A9270; J7030; 93010; 99283

== ENCOUNTER 2025-04-23 16:18 | Inpatient (IN) | payer OTHER, MEDICAID ==
[2025-04-23] MEDS ORDERED: Sodium Chloride 0.9% 10 ML Syringe FLUSH PRN (16:37)
[2025-04-23 16:47] LABS: BASOPHILS ABSOLUTE AUTO 0.1 K/mm3 (0.0-0.2); BASOPHILS PERCENT AUTO 1.0 % (0.0-1.0); EOSINOPHILS ABSOLUTE AUTO 0.9 K/mm3 (0.0-0.4); EOSINOPHILS PERCENT AUTO 9.3 % (0.0-6.0); IMMATURE GRAN ABSOLUTE AUTO 0.02 K/mm3 (0.00-0.05); IMMATURE GRAN PERCENT AUTO 0.2 % (0.0-0.4); LYMPHOCYTES ABSOLUTE AUTO 3.1 K/mm3 (1.0-4.8); LYMPHOCYTES PERCENT AUTO 34.0 % (24.0-44.0); MEAN PLATELET VOLUME 8.9 fl (9.4-12.4); MONOCYTES ABSOLUTE AUTO 0.7 K/mm3 (0.0-0.8); MONOCYTES PERCENT AUTO 7.1 % (0.0-8.0); NEUTROPHILS ABSOLUTE AUTO 4.5 K/mm3 (1.8-7.7); NEUTROPHILS PERCENT AUTO 48.4 % (41.0-71.0); NRBC ABSOLUTE 0.00 (0.00-0.02); NRBC PERCENT 0.0 % (0.0-0.2); PLATELET COUNT,PLT 297 K/mm3 (150-400); RED BLOOD CELL COUNT 4.90 M/mm3 (4.52-5.90); WHITE BLOOD CELL COUNT,WBC 9.21 K/mm3 (3.9-11.3)
[2025-04-23 17:04] LABS: A/G RATIO 0.9 (1-2); ALANINE AMINOTRANSFERASE,ALT 50.0 U/L (16-63); ASPARTATE AMNIOTRANSFERASE,AST 27.0 U/L (15-37); BILIRUBIN TOTAL 0.2 mg/dL (0.2-1.0); BLOOD UREA NITROGEN,BUN 9.0 mg/dL (7-18); CARBON DIOXIDE,CO2 33.0 mEq/L (21-32); CHLORIDE,CL 105.0 mEq/L (98-107); CREATININE 0.7 mg/dL (0.7-1.3); EST CRCL DRUG DOSING (CG) 120.1 mL/min; ESTIMATED GFR 104.0 mL/min (>60); GLUCOSE RANDOM 120.0 mg/dL (70-99); POTASSIUM,K 4.0 mEq/L (3.5-5.1); PROTEIN TOTAL,TP 7.3 g/dl (6.4-8.2); SODIUM,NA 145.0 mEq/L (136-145); TROPONIN I HIGH SENSITIVITY 7.0 pg/mL (<=76)
[2025-04-23 19:52] LABS: BASE EXCESS VENOUS 8.0 (-4.0-2.0); BICARBONATE,VENOUS 36.2 meq/L (22-26); O2 SATURATION VENOUS 98.8; PCO2 VENOUS 64.0 mmHg (41-51); PH,VENOUS 7.36 (7.30-7.40); PO2 VENOUS 93.0 mmHG (40-80)
[2025-04-23] MEDS: LORazepam 2 MG/ML SDV IVPUSH PRN (22:45)
[2025-04-24] MEDS: LORazepam 2 MG/ML SDV IVPUSH ONE (01:38)
[2025-04-24 04:56] LABS: BASOPHILS ABSOLUTE AUTO 0.1 K/mm3 (0.0-0.2); BASOPHILS PERCENT AUTO 0.8 % (0.0-1.0); EOSINOPHILS ABSOLUTE AUTO 0.5 K/mm3 (0.0-0.4); EOSINOPHILS PERCENT AUTO 7.0 % (0.0-6.0); IMMATURE GRAN ABSOLUTE AUTO 0.02 K/mm3 (0.00-0.05); IMMATURE GRAN PERCENT AUTO 0.3 % (0.0-0.4); LYMPHOCYTES ABSOLUTE AUTO 1.7 K/mm3 (1.0-4.8); LYMPHOCYTES PERCENT AUTO 22.3 % (24.0-44.0); MEAN PLATELET VOLUME 8.6 fl (9.4-12.4); MONOCYTES ABSOLUTE AUTO 0.5 K/mm3 (0.0-0.8); MONOCYTES PERCENT AUTO 6.4 % (0.0-8.0); NEUTROPHILS ABSOLUTE AUTO 4.8 K/mm3 (1.8-7.7); NEUTROPHILS PERCENT AUTO 63.2 % (41.0-71.0); NRBC ABSOLUTE 0.00 (0.00-0.02); NRBC PERCENT 0.0 % (0.0-0.2); PLATELET COUNT,PLT 244 K/mm3 (150-400); RED BLOOD CELL COUNT 4.34 M/mm3 (4.52-5.90); WHITE BLOOD CELL COUNT,WBC 7.62 K/mm3 (3.9-11.3)
[2025-04-24 05:17] LABS: A/G RATIO 0.9 (1-2); ALANINE AMINOTRANSFERASE,ALT 44.0 U/L (16-63); ASPARTATE AMNIOTRANSFERASE,AST 22.0 U/L (15-37); BILIRUBIN TOTAL 0.3 mg/dL (0.2-1.0); BLOOD UREA NITROGEN,BUN 9.0 mg/dL (7-18); CARBON DIOXIDE,CO2 33.0 mEq/L (21-32); CHLORIDE,CL 105.0 mEq/L (98-107); CREATININE 0.7 mg/dL (0.7-1.3); EST CRCL DRUG DOSING (CG) 104.6 mL/min; ESTIMATED GFR 104.0 mL/min (>60); GLUCOSE RANDOM 109.0 mg/dL (70-99); PHOSPHORUS 3.7 mg/dL (2.6-4.7); POTASSIUM,K 4.2 mEq/L (3.5-5.1); PROTEIN TOTAL,TP 6.2 g/dl (6.4-8.2); SODIUM,NA 145.0 mEq/L (136-145)
[2025-04-24 09:45] LABS: APPEARANCE,URINE CLEAR (Clear); GLUCOSE,URINE NEGATIVE (Negative); OCCULT BLOOD,URINE NEGATIVE (Negative)
[2025-04-24 09:53] LABS: SQUAMOUS EPITHELIAL CELLS,UR 0-5 /hpf (0-5)
[2025-04-24 09:54] LABS: AMPHETAMINES SCREEN, URINE NEGATIVE (CUTOFF=500); BUPRENORPHINE SCREEN,URINE NEGATIVE (CUTOFF=10); METHADONE SCREEN, URINE NEGATIVE (CUT0FF=200); METHAMPHETAMINES SCREEN, URINE NEGATIVE (CUTOFF=500); OXYCODONE SCREEN,URINE NEGATIVE (CUT0FF=100); THC SCREEN,URINE 20 NG/ML PRESUMPTIVE POSITIVE (CUTOFF=50)
[2025-04-24] MEDS: methylPREDNISolone Sodium Succinate 40 MG/1 ML SDV IVPUSH ONE (12:58)
[2025-04-24] MEDS ORDERED: LORazepam 2 MG/ML SDV IV PRN (16:01)
[2025-04-24] MEDS: cefTRIAXone 1 GM in Water For Injection, Sterile 10 ML IVPUSH SCH (20:37)
[2025-04-24] MEDS: LORazepam 2 MG/ML SDV IV PRN (20:41)
[2025-04-25 04:32] LABS: BASOPHILS ABSOLUTE AUTO 0.0 K/mm3 (0.0-0.2); BASOPHILS PERCENT AUTO 0.4 % (0.0-1.0); EOSINOPHILS ABSOLUTE AUTO 0.1 K/mm3 (0.0-0.4); EOSINOPHILS PERCENT AUTO 1.7 % (0.0-6.0); IMMATURE GRAN ABSOLUTE AUTO 0.02 K/mm3 (0.00-0.05); IMMATURE GRAN PERCENT AUTO 0.3 % (0.0-0.4); LYMPHOCYTES ABSOLUTE AUTO 1.1 K/mm3 (1.0-4.8); LYMPHOCYTES PERCENT AUTO 15.2 % (24.0-44.0); MEAN PLATELET VOLUME 9.0 fl (9.4-12.4); MONOCYTES ABSOLUTE AUTO 0.5 K/mm3 (0.0-0.8); MONOCYTES PERCENT AUTO 7.0 % (0.0-8.0); NEUTROPHILS ABSOLUTE AUTO 5.7 K/mm3 (1.8-7.7); NEUTROPHILS PERCENT AUTO 75.4 % (41.0-71.0); NRBC ABSOLUTE 0.00 (0.00-0.02); NRBC PERCENT 0.0 % (0.0-0.2); PLATELET COUNT,PLT 233 K/mm3 (150-400); RED BLOOD CELL COUNT 4.36 M/mm3 (4.52-5.90); WHITE BLOOD CELL COUNT,WBC 7.52 K/mm3 (3.9-11.3)
[2025-04-25 04:52] LABS: A/G RATIO 0.8 (1-2); ALANINE AMINOTRANSFERASE,ALT 35.0 U/L (16-63); ASPARTATE AMNIOTRANSFERASE,AST 14.0 U/L (15-37); BILIRUBIN TOTAL 0.4 mg/dL (0.2-1.0); BLOOD UREA NITROGEN,BUN 18.0 mg/dL (7-18); CARBON DIOXIDE,CO2 36.0 mEq/L (21-32); CHLORIDE,CL 104.0 mEq/L (98-107); CREATININE 0.6 mg/dL (0.7-1.3); EST CRCL DRUG DOSING (CG) 122.03 mL/min; ESTIMATED GFR 109.0 mL/min (>60); GLUCOSE RANDOM 114.0 mg/dL (70-99); POTASSIUM,K 4.7 mEq/L (3.5-5.1); PROTEIN TOTAL,TP 6.2 g/dl (6.4-8.2); SODIUM,NA 141.0 mEq/L (136-145)
[2025-04-25] MEDS: BUDESONIDE INH SCH ×2 (09:42→21:32)
[2025-04-25] MEDS: GLYCOPYR INH SCH ×2 (09:42→21:32)
[2025-04-25] MEDS: FORMOTEROL INH SCH ×2 (09:42→21:32)
[2025-04-25] MEDS ORDERED: Patient's Own Medication 1 Each INH SCH (09:45)
[2025-04-26 04:50] LABS: BASOPHILS ABSOLUTE AUTO 0.1 K/mm3 (0.0-0.2); BASOPHILS PERCENT AUTO 0.9 % (0.0-1.0); EOSINOPHILS ABSOLUTE AUTO 0.5 K/mm3 (0.0-0.4); EOSINOPHILS PERCENT AUTO 6.7 % (0.0-6.0); IMMATURE GRAN ABSOLUTE AUTO 0.03 K/mm3 (0.00-0.05); IMMATURE GRAN PERCENT AUTO 0.4 % (0.0-0.4); LYMPHOCYTES ABSOLUTE AUTO 2.0 K/mm3 (1.0-4.8); LYMPHOCYTES PERCENT AUTO 24.9 % (24.0-44.0); MEAN PLATELET VOLUME 9.1 fl (9.4-12.4); MONOCYTES ABSOLUTE AUTO 0.5 K/mm3 (0.0-0.8); MONOCYTES PERCENT AUTO 5.9 % (0.0-8.0); NEUTROPHILS ABSOLUTE AUTO 4.9 K/mm3 (1.8-7.7); NEUTROPHILS PERCENT AUTO 61.2 % (41.0-71.0); NRBC ABSOLUTE 0.00 (0.00-0.02); NRBC PERCENT 0.0 % (0.0-0.2); PLATELET COUNT,PLT 216 K/mm3 (150-400); RED BLOOD CELL COUNT 4.10 M/mm3 (4.52-5.90); WHITE BLOOD CELL COUNT,WBC 8.02 K/mm3 (3.9-11.3)
[2025-04-26 05:15] LABS: A/G RATIO 0.9 (1-2); ALANINE AMINOTRANSFERASE,ALT 30.0 U/L (16-63); ASPARTATE AMNIOTRANSFERASE,AST 14.0 U/L (15-37); BILIRUBIN TOTAL 0.3 mg/dL (0.2-1.0); BLOOD UREA NITROGEN,BUN 16.0 mg/dL (7-18); CARBON DIOXIDE,CO2 34.0 mEq/L (21-32); CHLORIDE,CL 106.0 mEq/L (98-107); CREATININE 0.8 mg/dL (0.7-1.3); EST CRCL DRUG DOSING (CG) 97.79 mL/min; ESTIMATED GFR 100.0 mL/min (>60); GLUCOSE RANDOM 98.0 mg/dL (70-99); POTASSIUM,K 4.0 mEq/L (3.5-5.1); PROTEIN TOTAL,TP 5.7 g/dl (6.4-8.2); SODIUM,NA 143.0 mEq/L (136-145)
[2025-04-26] MEDS: Magnesium Sulfate 2 GM/50 mL 2 GM in Premix Bag 1 BAG IV ONE (18:41)
[2025-04-27 04:29] LABS: BASOPHILS ABSOLUTE AUTO 0.0 K/mm3 (0.0-0.2); BASOPHILS PERCENT AUTO 0.5 % (0.0-1.0); EOSINOPHILS ABSOLUTE AUTO 0.4 K/mm3 (0.0-0.4); EOSINOPHILS PERCENT AUTO 5.2 % (0.0-6.0); IMMATURE GRAN ABSOLUTE AUTO 0.04 K/mm3 (0.00-0.05); IMMATURE GRAN PERCENT AUTO 0.5 % (0.0-0.4); LYMPHOCYTES ABSOLUTE AUTO 1.8 K/mm3 (1.0-4.8); LYMPHOCYTES PERCENT AUTO 21.6 % (24.0-44.0); MEAN PLATELET VOLUME 8.7 fl (9.4-12.4); MONOCYTES ABSOLUTE AUTO 0.5 K/mm3 (0.0-0.8); MONOCYTES PERCENT AUTO 6.2 % (0.0-8.0); NEUTROPHILS ABSOLUTE AUTO 5.6 K/mm3 (1.8-7.7); NEUTROPHILS PERCENT AUTO 66.0 % (41.0-71.0); NRBC ABSOLUTE 0.00 (0.00-0.02); NRBC PERCENT 0.0 % (0.0-0.2); PLATELET COUNT,PLT 230 K/mm3 (150-400); RED BLOOD CELL COUNT 4.05 M/mm3 (4.52-5.90); WHITE BLOOD CELL COUNT,WBC 8.50 K/mm3 (3.9-11.3)
[2025-04-27 04:47] LABS: A/G RATIO 1.0 (1-2); ALANINE AMINOTRANSFERASE,ALT 30.0 U/L (16-63); ASPARTATE AMNIOTRANSFERASE,AST 10.0 U/L (15-37); BILIRUBIN TOTAL 0.2 mg/dL (0.2-1.0); BLOOD UREA NITROGEN,BUN 22.0 mg/dL (7-18); CARBON DIOXIDE,CO2 36.0 mEq/L (21-32); CHLORIDE,CL 102.0 mEq/L (98-107); CREATININE 0.6 mg/dL (0.7-1.3); EST CRCL DRUG DOSING (CG) 130.38 mL/min; ESTIMATED GFR 109.0 mL/min (>60); GLUCOSE RANDOM 102.0 mg/dL (70-99); POTASSIUM,K 3.9 mEq/L (3.5-5.1); PROTEIN TOTAL,TP 6.1 g/dl (6.4-8.2); SODIUM,NA 143.0 mEq/L (136-145)
== END 2025-04-27 14:45 | disposition home or self-care (01) | DRG 193 ==
LOC: JD.ED 16:18 → JD.ICU 21:15 → JD.MS 04-25 11:32 → JD.ICU 04-25 11:32
PROVIDERS: ADMIT Family Medicine; ATTEND Family Medicine
DX: J18.9 Pneumonia, unspecified organism (principal); G92.8 Other toxic encephalopathy; J96.21 Acute and chronic respiratory failure with hypoxia; J44.0 Chronic obstructive pulmonary disease with (acute) lower respiratory infection; F10.10 Alcohol abuse, uncomplicated; E78.5 Hyperlipidemia, unspecified; H54.7 Unspecified visual loss; I10 Essential (primary) hypertension; M54.9 Dorsalgia, unspecified; G89.29 Other chronic pain; F17.200 Nicotine dependence, unspecified, uncomplicated; F41.9 Anxiety disorder, unspecified; F32.A Depression, unspecified; Z99.81 Dependence on supplemental oxygen; Z79.899 Other long term (current) drug therapy
CPT/HCPCS: 36415; 70450; 70450-26; 71045; 71045-26; 73110-26-LT; 73110-LT; 80053; 80306; 80307; 81001; 82803; 83735; 84100; 84484; 85025; 85379; 92610-GN; 93005; 93010; 94640; 94667; 94668; 94761; 94762; 97110-GP; 97116-GP; 97161-GP; 99285; A9270-GY; J0456; J0696; J1650; J2060; J2919; J3475; J7050; J7512

== ENCOUNTER 2025-05-09 12:47 | Inpatient (IN) | payer MEDICAID ==
[2025-05-09] MEDS ORDERED: Sodium Chloride 0.9% 10 ML Syringe FLUSH PRN (14:08)
[2025-05-09 14:17] LABS: BASOPHILS ABSOLUTE AUTO 0.1 K/mm3 (0.0-0.2); BASOPHILS PERCENT AUTO 0.5 % (0.0-1.0); EOSINOPHILS ABSOLUTE AUTO 1.3 K/mm3 (0.0-0.4); EOSINOPHILS PERCENT AUTO 11.0 % (0.0-6.0); IMMATURE GRAN ABSOLUTE AUTO 0.04 K/mm3 (0.00-0.05); IMMATURE GRAN PERCENT AUTO 0.3 % (0.0-0.4); LYMPHOCYTES ABSOLUTE AUTO 2.3 K/mm3 (1.0-4.8); LYMPHOCYTES PERCENT AUTO 19.7 % (24.0-44.0); MEAN PLATELET VOLUME 9.1 fl (9.4-12.4); MONOCYTES ABSOLUTE AUTO 0.8 K/mm3 (0.0-0.8); MONOCYTES PERCENT AUTO 6.4 % (0.0-8.0); NEUTROPHILS ABSOLUTE AUTO 7.3 K/mm3 (1.8-7.7); NEUTROPHILS PERCENT AUTO 62.1 % (41.0-71.0); NRBC ABSOLUTE 0.00 (0.00-0.02); NRBC PERCENT 0.0 % (0.0-0.2); PLATELET COUNT,PLT 266 K/mm3 (150-400); RED BLOOD CELL COUNT 4.93 M/mm3 (4.52-5.90); WHITE BLOOD CELL COUNT,WBC 11.82 K/mm3 (3.9-11.3)
[2025-05-09] MEDS: LORazepam 2 MG/ML SDV IVPUSH ONE (14:33)
[2025-05-09] MEDS: Ondansetron 4 MG/2 ML SDV IVPUSH ONE (14:33)
[2025-05-09 14:34] LABS: A/G RATIO 1.0 (1-2); ALANINE AMINOTRANSFERASE,ALT 31.0 U/L (16-63); ASPARTATE AMNIOTRANSFERASE,AST 20.0 U/L (15-37); BILIRUBIN TOTAL 0.4 mg/dL (0.2-1.0); BLOOD UREA NITROGEN,BUN 8.0 mg/dL (7-18); CARBON DIOXIDE,CO2 32.0 mEq/L (21-32); CHLORIDE,CL 104.0 mEq/L (98-107); CREATININE 0.7 mg/dL (0.7-1.3); EST CRCL DRUG DOSING (CG) 108.95 mL/min; ESTIMATED GFR 104.0 mL/min (>60); GLUCOSE RANDOM 109.0 mg/dL (70-99); POTASSIUM,K 3.9 mEq/L (3.5-5.1); PROTEIN TOTAL,TP 7.3 g/dl (6.4-8.2); SODIUM,NA 143.0 mEq/L (136-145); TSH 1.09 uIU/mL (0.358-3.74)
[2025-05-09 14:38] LABS: ETHANOL BLOOD MEDICAL 0.0 gm% (0.00)
[2025-05-09 16:28] LABS: BUPRENORPHINE SCREEN,URINE NEGATIVE (CUTOFF=10); METHADONE SCREEN, URINE NEGATIVE (CUT0FF=200); METHAMPHETAMINES SCREEN, URINE NEGATIVE (CUTOFF=500); OXYCODONE SCREEN,URINE NEGATIVE (CUT0FF=100); THC SCREEN,URINE 20 NG/ML PRESUMPTIVE POSITIVE (CUTOFF=50)
[2025-05-09 16:30] LABS: AMPHETAMINES SCREEN, URINE NEGATIVE (CUTOFF=500)
[2025-05-09] MEDS: LORazepam 2 MG/ML SDV IVPUSH PRN (22:36)
[2025-05-10] MEDS ORDERED: LORazepam 2 MG/ML SDV IVPUSH PRN ×3 (05:46→08:36)
[2025-05-10 07:45] LABS: BASOPHILS ABSOLUTE AUTO 0.1 K/mm3 (0.0-0.2); BASOPHILS PERCENT AUTO 0.7 % (0.0-1.0); EOSINOPHILS ABSOLUTE AUTO 1.5 K/mm3 (0.0-0.4); EOSINOPHILS PERCENT AUTO 16.9 % (0.0-6.0); IMMATURE GRAN ABSOLUTE AUTO 0.02 K/mm3 (0.00-0.05); IMMATURE GRAN PERCENT AUTO 0.2 % (0.0-0.4); LYMPHOCYTES ABSOLUTE AUTO 1.7 K/mm3 (1.0-4.8); LYMPHOCYTES PERCENT AUTO 19.8 % (24.0-44.0); MEAN PLATELET VOLUME 9.3 fl (9.4-12.4); MONOCYTES ABSOLUTE AUTO 0.6 K/mm3 (0.0-0.8); MONOCYTES PERCENT AUTO 6.3 % (0.0-8.0); NEUTROPHILS ABSOLUTE AUTO 4.9 K/mm3 (1.8-7.7); NEUTROPHILS PERCENT AUTO 56.1 % (41.0-71.0); NRBC ABSOLUTE 0.00 (0.00-0.02); NRBC PERCENT 0.0 % (0.0-0.2); PLATELET COUNT,PLT 201 K/mm3 (150-400); RED BLOOD CELL COUNT 4.18 M/mm3 (4.52-5.90); WHITE BLOOD CELL COUNT,WBC 8.78 K/mm3 (3.9-11.3)
[2025-05-10 07:57] LABS: A/G RATIO 0.9 (1-2); ALANINE AMINOTRANSFERASE,ALT 26.0 U/L (16-63); ASPARTATE AMNIOTRANSFERASE,AST 16.0 U/L (15-37); BILIRUBIN TOTAL 0.6 mg/dL (0.2-1.0); BLOOD UREA NITROGEN,BUN 9.0 mg/dL (7-18); CARBON DIOXIDE,CO2 31.0 mEq/L (21-32); CHLORIDE,CL 105.0 mEq/L (98-107); CREATININE 0.6 mg/dL (0.7-1.3); EST CRCL DRUG DOSING (CG) 126.21 mL/min; ESTIMATED GFR 109.0 mL/min (>60); GLUCOSE RANDOM 89.0 mg/dL (70-99); POTASSIUM,K 4.0 mEq/L (3.5-5.1); PROTEIN TOTAL,TP 5.8 g/dl (6.4-8.2); SODIUM,NA 141.0 mEq/L (136-145)
[2025-05-10] MEDS ORDERED: Ondansetron 4 MG/2 ML SDV IV PRN (08:28)
[2025-05-10] MEDS: Cyanocobalamin (Vitamin B12) 1,000 MCG Tab PO SCH (08:56)
[2025-05-10] MEDS: Magnesium Sulfate 2 GM/50 mL 2 GM in Premix Bag 1 BAG IV ONE (08:59)
[2025-05-10] MEDS ORDERED: ROFLUMILAST 500 MCG PO SCH (09:00)
[2025-05-11 04:43] LABS: BASOPHILS ABSOLUTE AUTO 0.1 K/mm3 (0.0-0.2); BASOPHILS PERCENT AUTO 0.6 % (0.0-1.0); EOSINOPHILS ABSOLUTE AUTO 1.4 K/mm3 (0.0-0.4); EOSINOPHILS PERCENT AUTO 16.7 % (0.0-6.0); IMMATURE GRAN ABSOLUTE AUTO 0.03 K/mm3 (0.00-0.05); IMMATURE GRAN PERCENT AUTO 0.4 % (0.0-0.4); LYMPHOCYTES ABSOLUTE AUTO 1.8 K/mm3 (1.0-4.8); LYMPHOCYTES PERCENT AUTO 21.4 % (24.0-44.0); MEAN PLATELET VOLUME 9.3 fl (9.4-12.4); MONOCYTES ABSOLUTE AUTO 0.5 K/mm3 (0.0-0.8); MONOCYTES PERCENT AUTO 6.6 % (0.0-8.0); NEUTROPHILS ABSOLUTE AUTO 4.4 K/mm3 (1.8-7.7); NEUTROPHILS PERCENT AUTO 54.3 % (41.0-71.0); NRBC ABSOLUTE 0.00 (0.00-0.02); NRBC PERCENT 0.0 % (0.0-0.2); PLATELET COUNT,PLT 198 K/mm3 (150-400); RED BLOOD CELL COUNT 4.17 M/mm3 (4.52-5.90); WHITE BLOOD CELL COUNT,WBC 8.18 K/mm3 (3.9-11.3)
[2025-05-11 05:24] LABS: A/G RATIO 0.9 (1-2); ALANINE AMINOTRANSFERASE,ALT 23.0 U/L (16-63); ASPARTATE AMNIOTRANSFERASE,AST 14.0 U/L (15-37); BILIRUBIN TOTAL 0.3 mg/dL (0.2-1.0); BLOOD UREA NITROGEN,BUN 12.0 mg/dL (7-18); CARBON DIOXIDE,CO2 33.0 mEq/L (21-32); CHLORIDE,CL 103.0 mEq/L (98-107); CREATININE 0.7 mg/dL (0.7-1.3); EST CRCL DRUG DOSING (CG) 108.18 mL/min; ESTIMATED GFR 104.0 mL/min (>60); GLUCOSE RANDOM 97.0 mg/dL (70-99); POTASSIUM,K 3.8 mEq/L (3.5-5.1); PROTEIN TOTAL,TP 5.9 g/dl (6.4-8.2); SODIUM,NA 143.0 mEq/L (136-145)
[2025-05-11] MEDS: Magnesium Sulfate 2 GM/50 mL 2 GM in Premix Bag 1 BAG IV ONE (08:02)
[2025-05-12] MEDS ORDERED: Non-Formulary Medication 1 Each (Alendronate Sodium 70 MG Tablet) PO SCH (08:32)
== END 2025-05-11 13:20 | disposition home or self-care (01) | DRG 897 ==
LOC: JD.ED 12:47 → JD.ICU 17:10 → UNDOADMOB 17:10 → INTOOBSV 17:10 → JD.ICU 17:10 → OBSVTOIN 17:10 → UNDODISIN 05-11 13:20
PROVIDERS: ADMIT Internal Medicine; ATTEND Internal Medicine
PROC: HZ2ZZZZ Detoxification Services for Substance Abuse Treatment (ICD-10-PCS; principal; 2025-05-09)
DX: J41.0 Simple chronic bronchitis (principal); F10.131 Alcohol abuse with withdrawal delirium; F10.239 Alcohol dependence with withdrawal, unspecified; J44.89 Other specified chronic obstructive pulmonary disease; F17.210 Nicotine dependence, cigarettes, uncomplicated; F17.200 Nicotine dependence, unspecified, uncomplicated; Y90.9 Presence of alcohol in blood, level not specified; M54.9 Dorsalgia, unspecified; G89.29 Other chronic pain; F32.89 Other specified depressive episodes; I10 Essential (primary) hypertension; J44.9 Chronic obstructive pulmonary disease, unspecified; F41.9 Anxiety disorder, unspecified; F32.A Depression, unspecified; F12.10 Cannabis abuse, uncomplicated; H54.7 Unspecified visual loss; E86.0 Dehydration; J45.20 Mild intermittent asthma, uncomplicated; Z99.81 Dependence on supplemental oxygen; Z79.899 Other long term (current) drug therapy
CPT/HCPCS: 36415; 71045; 73060; 80053; 80143; 80179; 80306; 80307; 83735; 84443; 85025; 93005; 96361; 96374; 96375; 99285; A9270; J2060; J2405; J7030; 84100; 93010; 94640; 94761; 97112-GP; 97116-GP; 97162-GP; 97166-GO; 97535-GO; J1650; J3475

== ENCOUNTER 2025-05-21 10:36 | Inpatient (IN) | payer OTHER, MEDICAID ==
[2025-05-21 11:47] LABS: BASOPHILS ABSOLUTE AUTO 0.1 K/mm3 (0.0-0.2); BASOPHILS PERCENT AUTO 0.6 % (0.0-1.0); EOSINOPHILS ABSOLUTE AUTO 1.6 K/mm3 (0.0-0.4); EOSINOPHILS PERCENT AUTO 14.6 % (0.0-6.0); IMMATURE GRAN ABSOLUTE AUTO 0.05 K/mm3 (0.00-0.05); IMMATURE GRAN PERCENT AUTO 0.5 % (0.0-0.4); LYMPHOCYTES ABSOLUTE AUTO 2.3 K/mm3 (1.0-4.8); LYMPHOCYTES PERCENT AUTO 21.1 % (24.0-44.0); MEAN PLATELET VOLUME 9.1 fl (9.4-12.4); MONOCYTES ABSOLUTE AUTO 0.6 K/mm3 (0.0-0.8); MONOCYTES PERCENT AUTO 5.1 % (0.0-8.0); NEUTROPHILS ABSOLUTE AUTO 6.3 K/mm3 (1.8-7.7); NEUTROPHILS PERCENT AUTO 58.1 % (41.0-71.0); NRBC ABSOLUTE 0.00 (0.00-0.02); NRBC PERCENT 0.0 % (0.0-0.2); PLATELET COUNT,PLT 269 K/mm3 (150-400); RED BLOOD CELL COUNT 4.93 M/mm3 (4.52-5.90); WHITE BLOOD CELL COUNT,WBC 10.90 K/mm3 (3.9-11.3)
[2025-05-21 12:00] LABS: A/G RATIO 1.0 (1-2); ALANINE AMINOTRANSFERASE,ALT 26.0 U/L (16-63); ASPARTATE AMNIOTRANSFERASE,AST 17.0 U/L (15-37); BILIRUBIN TOTAL 0.5 mg/dL (0.2-1.0); BLOOD UREA NITROGEN,BUN 7.0 mg/dL (7-18); CARBON DIOXIDE,CO2 30.0 mEq/L (21-32); CHLORIDE,CL 101.0 mEq/L (98-107); CREATININE 0.7 mg/dL (0.7-1.3); EST CRCL DRUG DOSING (CG) 108.18 mL/min; ESTIMATED GFR 104.0 mL/min (>60); GLUCOSE RANDOM 136.0 mg/dL (70-99); POTASSIUM,K 3.7 mEq/L (3.5-5.1); PROTEIN TOTAL,TP 7.3 g/dl (6.4-8.2); SODIUM,NA 142.0 mEq/L (136-145); TROPONIN I HIGH SENSITIVITY 7.0 pg/mL (<=76)
[2025-05-21] MEDS: methylPREDNISolone Sodium Succinate 125 MG/2 ML SDV IVPUSH ONE (12:06)
[2025-05-21] MEDS: Sodium Chloride 0.9% 10 ML Syringe FLUSH PRN (12:07)
[2025-05-21] MEDS: LORazepam 2 MG/ML SDV IVPUSH ONE (12:52)
[2025-05-21 14:02] LABS: CORONAVIRUS COVID-19 NAA NEGATIVE (NEGATIVE); INFLUENZA A NAA NEGATIVE (NEGATIVE); RESPIRATORY SYNCYTIAL VIR NAA NEGATIVE (NEGATIVE)
[2025-05-21 15:37] LABS: APPEARANCE,URINE TURBID (Clear); GLUCOSE,URINE NEGATIVE (Negative); OCCULT BLOOD,URINE TRACE-INTACT (Negative)
[2025-05-21 15:48] LABS: BUPRENORPHINE SCREEN,URINE NEGATIVE (CUTOFF=10); METHADONE SCREEN, URINE NEGATIVE (CUT0FF=200); METHAMPHETAMINES SCREEN, URINE NEGATIVE (CUTOFF=500); OXYCODONE SCREEN,URINE NEGATIVE (CUT0FF=100); THC SCREEN,URINE 20 NG/ML NEGATIVE (CUTOFF=50)
[2025-05-21 15:49] LABS: EPITHELIAL CELLS,URINE 0-5 /hpf (0-5)
[2025-05-21 15:50] LABS: COARSE GRANULAR CASTS,URINE 0-5 /hpf (0-5)
[2025-05-21 15:52] LABS: AMPHETAMINES SCREEN, URINE NEGATIVE (CUTOFF=500)
[2025-05-21] MEDS ORDERED: LORazepam 2 MG/ML SDV IV PRN ×2 (17:57)
[2025-05-21 18:12] LABS: BASE EXCESS ARTERIAL 8.6 (-2-2.0); BICARBONATE,ARTERIAL 32.8 meq/L (22.0-26.0); O2 SATURATION ARTERIAL 86.4 % (96.0-97.0); PCO2 ARTERIAL 42.0 mmHg (35.0-45.0); PO2 ARTERIAL 59.0 mmHg (80.0-100.0)
[2025-05-21] MEDS: Levofloxacin/Dextrose 5%-Water 750 MG in Premix Bag 1 BAG IV SCH (19:03)
[2025-05-22 05:40] LABS: BASOPHILS ABSOLUTE AUTO 0.0 K/mm3 (0.0-0.2); BASOPHILS PERCENT AUTO 0.1 % (0.0-1.0); EOSINOPHILS ABSOLUTE AUTO 0.1 K/mm3 (0.0-0.4); EOSINOPHILS PERCENT AUTO 0.5 % (0.0-6.0); IMMATURE GRAN ABSOLUTE AUTO 0.03 K/mm3 (0.00-0.05); IMMATURE GRAN PERCENT AUTO 0.3 % (0.0-0.4); LYMPHOCYTES ABSOLUTE AUTO 1.2 K/mm3 (1.0-4.8); LYMPHOCYTES PERCENT AUTO 13.1 % (24.0-44.0); MEAN PLATELET VOLUME 8.8 fl (9.4-12.4); MONOCYTES ABSOLUTE AUTO 0.8 K/mm3 (0.0-0.8); MONOCYTES PERCENT AUTO 8.4 % (0.0-8.0); NEUTROPHILS ABSOLUTE AUTO 7.1 K/mm3 (1.8-7.7); NEUTROPHILS PERCENT AUTO 77.6 % (41.0-71.0); NRBC ABSOLUTE 0.00 (0.00-0.02); NRBC PERCENT 0.0 % (0.0-0.2); PLATELET COUNT,PLT 248 K/mm3 (150-400); RED BLOOD CELL COUNT 4.55 M/mm3 (4.52-5.90); WHITE BLOOD CELL COUNT,WBC 9.16 K/mm3 (3.9-11.3)
[2025-05-22 06:21] LABS: BLOOD UREA NITROGEN,BUN 15.0 mg/dL (7-18); CARBON DIOXIDE,CO2 30.0 mEq/L (21-32); CHLORIDE,CL 101.0 mEq/L (98-107); CREATININE 0.8 mg/dL (0.7-1.3); EST CRCL DRUG DOSING (CG) 92.44 mL/min; ESTIMATED GFR 100.0 mL/min (>60); GLUCOSE RANDOM 114.0 mg/dL (70-99); POTASSIUM,K 4.0 mEq/L (3.5-5.1); SODIUM,NA 139.0 mEq/L (136-145)
[2025-05-22] MEDS: Cyanocobalamin (Vitamin B12) 1,000 MCG Tab PO SCH (08:44)
[2025-05-22] MEDS ORDERED: ROFLUMILAST 500 MCG PO SCH (09:00)
== END 2025-05-22 10:45 | disposition other institution (70) | DRG 191 ==
LOC: JD.ED 10:36 → JD.MS 14:47
PROVIDERS: ADMIT Family Medicine; ATTEND Family Medicine
PROC: 4A033R1 Measurement of Arterial Saturation, Peripheral, Percutaneous Approach (ICD-10-PCS; principal; 2025-05-21)
PROC: 3E03329 Introduction of Other Anti-infective into Peripheral Vein, Percutaneous Approach (ICD-10-PCS; 2025-05-21)
PROC: 3E0333Z Introduction of Anti-inflammatory into Peripheral Vein, Percutaneous Approach (ICD-10-PCS; 2025-05-21)
DX: J44.1 Chronic obstructive pulmonary disease with (acute) exacerbation (principal); F10.121 Alcohol abuse with intoxication delirium; F10.139 Alcohol abuse with withdrawal, unspecified; J42 Unspecified chronic bronchitis; F17.200 Nicotine dependence, unspecified, uncomplicated; Y90.0 Blood alcohol level of less than 20 mg/100 ml; I10 Essential (primary) hypertension; H54.7 Unspecified visual loss; J44.89 Other specified chronic obstructive pulmonary disease; F41.9 Anxiety disorder, unspecified; F32.A Depression, unspecified; G89.29 Other chronic pain; F17.210 Nicotine dependence, cigarettes, uncomplicated; R63.0 Anorexia; J43.9 Emphysema, unspecified; D72.10 Eosinophilia, unspecified; Z99.81 Dependence on supplemental oxygen; Z79.899 Other long term (current) drug therapy; Z79.1 Long term (current) use of non-steroidal anti-inflammatories (NSAID); Z79.51 Long term (current) use of inhaled steroids; Z87.01 Personal history of pneumonia (recurrent); Z68.22 Body mass index [BMI] 22.0-22.9, adult; Z71.6 Tobacco abuse counseling
CPT/HCPCS: 36415; 36600; 71046; 71046-26; 80048; 80053; 80143; 80179; 80306; 80307; 81001; 82803; 84145; 84484; 85025; 86140; 87637; 93005; 93010; 94640; 94761; 96374; 96375; 99223; 99239; 99285; 99285-25; A9270-GY; J1956; J2060; J2919

== ENCOUNTER 2025-05-30 09:55 | Inpatient (IN) | payer OTHER, MEDICAID ==
[2025-05-30] MEDS: Sodium Chloride 0.9% 10 ML Syringe FLUSH PRN (11:21)
[2025-05-30] MEDS: methylPREDNISolone Sodium Succinate 125 MG/2 ML SDV IVPUSH ONE (11:21)
[2025-05-30 11:22] LABS: BASOPHILS ABSOLUTE AUTO 0.0 K/mm3 (0.0-0.2); BASOPHILS PERCENT AUTO 0.4 % (0.0-1.0); EOSINOPHILS ABSOLUTE AUTO 0.8 K/mm3 (0.0-0.4); EOSINOPHILS PERCENT AUTO 7.6 % (0.0-6.0); IMMATURE GRAN ABSOLUTE AUTO 0.05 K/mm3 (0.00-0.05); IMMATURE GRAN PERCENT AUTO 0.5 % (0.0-0.4); LYMPHOCYTES ABSOLUTE AUTO 1.6 K/mm3 (1.0-4.8); LYMPHOCYTES PERCENT AUTO 14.9 % (24.0-44.0); MEAN PLATELET VOLUME 8.7 fl (9.4-12.4); MONOCYTES ABSOLUTE AUTO 0.7 K/mm3 (0.0-0.8); MONOCYTES PERCENT AUTO 6.7 % (0.0-8.0); NEUTROPHILS ABSOLUTE AUTO 7.5 K/mm3 (1.8-7.7); NEUTROPHILS PERCENT AUTO 69.9 % (41.0-71.0); NRBC ABSOLUTE 0.00 (0.00-0.02); NRBC PERCENT 0.0 % (0.0-0.2); PLATELET COUNT,PLT 238 K/mm3 (150-400); RED BLOOD CELL COUNT 4.65 M/mm3 (4.52-5.90); WHITE BLOOD CELL COUNT,WBC 10.68 K/mm3 (3.9-11.3)
[2025-05-30 11:59] LABS: A/G RATIO 0.9 (1-2); ALANINE AMINOTRANSFERASE,ALT 23.0 U/L (16-63); ASPARTATE AMNIOTRANSFERASE,AST 17.0 U/L (15-37); BILIRUBIN TOTAL 0.6 mg/dL (0.2-1.0); BLOOD UREA NITROGEN,BUN 9.0 mg/dL (7-18); CARBON DIOXIDE,CO2 31.0 mEq/L (21-32); CHLORIDE,CL 103.0 mEq/L (98-107); CREATININE 0.5 mg/dL (0.7-1.3); EST CRCL DRUG DOSING (CG) 147.42 mL/min; ESTIMATED GFR 115.0 mL/min (>60); GLUCOSE RANDOM 107.0 mg/dL (70-99); POTASSIUM,K 4.0 mEq/L (3.5-5.1); PROTEIN TOTAL,TP 6.8 g/dl (6.4-8.2); SODIUM,NA 140.0 mEq/L (136-145); TROPONIN I HIGH SENSITIVITY 5.0 pg/mL (<=76)
[2025-05-30 12:02] LABS: ETHANOL BLOOD MEDICAL 0.0 gm% (0.00)
[2025-05-30] MEDS: cefTRIAXone 1 GM in Water For Injection, Sterile 10 ML IVPUSH ONE (13:34)
[2025-05-30] MEDS ORDERED: guaiFENesin/Dextromethorphan 100-10 MG/5 ML Soln 5 ML Cup PO PRN (17:53)
[2025-05-30] MEDS ORDERED: LORazepam 2 MG/ML SDV IV PRN ×2 (19:30)
[2025-05-31 07:29] LABS: BASOPHILS ABSOLUTE AUTO 0.0 K/mm3 (0.0-0.2); BASOPHILS PERCENT AUTO 0.1 % (0.0-1.0); EOSINOPHILS ABSOLUTE AUTO 0.1 K/mm3 (0.0-0.4); EOSINOPHILS PERCENT AUTO 0.5 % (0.0-6.0); IMMATURE GRAN ABSOLUTE AUTO 0.04 K/mm3 (0.00-0.05); IMMATURE GRAN PERCENT AUTO 0.4 % (0.0-0.4); LYMPHOCYTES ABSOLUTE AUTO 1.4 K/mm3 (1.0-4.8); LYMPHOCYTES PERCENT AUTO 12.5 % (24.0-44.0); MEAN PLATELET VOLUME 9.2 fl (9.4-12.4); MONOCYTES ABSOLUTE AUTO 0.9 K/mm3 (0.0-0.8); MONOCYTES PERCENT AUTO 8.0 % (0.0-8.0); NEUTROPHILS ABSOLUTE AUTO 8.6 K/mm3 (1.8-7.7); NEUTROPHILS PERCENT AUTO 78.5 % (41.0-71.0); NRBC ABSOLUTE 0.00 (0.00-0.02); NRBC PERCENT 0.0 % (0.0-0.2); PLATELET COUNT,PLT 241 K/mm3 (150-400); RED BLOOD CELL COUNT 4.44 M/mm3 (4.52-5.90); WHITE BLOOD CELL COUNT,WBC 11.00 K/mm3 (3.9-11.3)
[2025-05-31 07:56] LABS: BLOOD UREA NITROGEN,BUN 11.0 mg/dL (7-18); CARBON DIOXIDE,CO2 28.0 mEq/L (21-32); CHLORIDE,CL 103.0 mEq/L (98-107); CREATININE 0.6 mg/dL (0.7-1.3); EST CRCL DRUG DOSING (CG) 124.24 mL/min; ESTIMATED GFR 109.0 mL/min (>60); GLUCOSE RANDOM 107.0 mg/dL (70-99); POTASSIUM,K 3.9 mEq/L (3.5-5.1); SODIUM,NA 137.0 mEq/L (136-145)
[2025-05-31] MEDS ORDERED: Budesonide 0.5 MG/2 ML Neb Susp NEB PRN (08:46)
[2025-05-31] MEDS ORDERED: ROFLUMILAST 500 MCG PO SCH (09:00)
[2025-05-31] MEDS: guaiFENesin/Dextromethorphan 100-10 MG/5 ML Soln 5 ML Cup PO SCH (09:50)
== END 2025-05-31 14:48 | disposition other institution (70) | DRG 194 ==
LOC: JD.ED 09:55 → JD.MS 15:55
PROVIDERS: ADMIT Family Medicine; ATTEND Family Medicine
DX: J18.9 Pneumonia, unspecified organism (principal); J44.0 Chronic obstructive pulmonary disease with (acute) lower respiratory infection; F10.10 Alcohol abuse, uncomplicated; M54.9 Dorsalgia, unspecified; G89.29 Other chronic pain; M54.2 Cervicalgia; F32.A Depression, unspecified; I10 Essential (primary) hypertension; F17.200 Nicotine dependence, unspecified, uncomplicated; H54.7 Unspecified visual loss; N40.0 Benign prostatic hyperplasia without lower urinary tract symptoms; F41.9 Anxiety disorder, unspecified; I25.2 Old myocardial infarction; Z79.899 Other long term (current) drug therapy; Z99.81 Dependence on supplemental oxygen
CPT/HCPCS: 36415; 71045; 71045-26; 80048; 80053; 80307; 83735; 83880; 84484; 85025; 86140; 87040; 87428-QW; 93005; 93970; 93970-26; 94640; 94761; 96365; 96367; 96375; 99285-25; A9270-GY; J0456; J0696; J1650; J2919; J3475; J7050; J7512